=== PATIENT | male | born 1945 | race Caucasian/White ===

== ENCOUNTER → 2017-10-11 | Outpatient (CLI) | payer MEDICARE, BC ==
--- NOTE | 2017-10-11 10:42 | US ---
EXAMINATION TYPE: US abdomen complete DATE OF EXAM: 10/11/2017 COMPARISON: NONE CLINICAL HISTORY: R10.11 RUQ PAIN. RUQ discomfort for 1 year EXAM MEASUREMENTS: Liver Length: 14.5 cm Gallbladder Wall: 0.2 cm CBD: 0.5 cm Spleen: 9.5 cm Right Kidney: 11.1 x 5.0 x 5.0 cm Left Kidney: 11.2 x 5.4 x 4.6 cm Technical limitations due to patient's body habitus and large amount of overlying bowel content Pancreas: Obscured by bowel gas Liver: limited evaluation, appears wnl Gallbladder: no evidence of stones Evidence for sonographic Pierre's sign: no CBD: appears wnl as visualized Spleen: appears wnl Right Kidney: no evidence of hydronephrosis Left Kidney: no evidence of hydronephrosis Upper IVC: appears wnl Abd Aorta: Obscured by overlying bowel gas The liver is homogenous. The intrahepatic portion of the IVC and proximal abdominal aorta are within normal limits. There is no evidence of cholelithiasis. Common bile duct is unremarkable. The visu alized portions of the pancreas are homogenous. The spleen is unremarkable. Kidneys are symmetric a nd free of hydronephrosis. No renal lesions are seen. IMPRESSION: No significant abnormality appreciated.
== END | disposition home or self-care (01) ==
LOC: RADUSWWP 09:24
DX: R10.11 Right upper quadrant pain (principal)
CPT/HCPCS: 76700

== ENCOUNTER → 2017-11-01 | Outpatient (CLI) | payer MEDICARE, BC ==
--- NOTE | 2017-11-01 13:28 | XR ---
EXAMINATION TYPE: XR chest 2V DATE OF EXAM: 11/01/2017 COMPARISON: 04/07/2016 HISTORY: Shortness of breath TECHNIQUE: Frontal and lateral views of the chest are obtained. FINDINGS: Scattered senescent parenchymal changes noted. No evidence for infiltrate. No evidence for atelectasis. Heart size is stable. Mediastinal structures are stable and grossly unremarkable. No evidence for hilar prominence. Degenerative changes dorsal spine. IMPRESSION: 1. No evidence for acute pulmonary disease.
== END | disposition home or self-care (01) ==
LOC: RADXRMAIN 11:45
PROVIDERS: ATTEND Internal Medicine
DX: R07.81 Pleurodynia (principal)
CPT/HCPCS: 71046

== ENCOUNTER 2017-11-06 08:28 | Day surgery (SDC) | payer MEDICARE, BC ==
[2017-11-04 13:01] VITALS: BMI 30.4
--- NOTE | 2017-11-06 07:45 | P.GSHP ---
History of Present Illness H&P Date: 11/06/17 CHIEF COMPLAINT: GERD and colon screen HISTORY OF PRESENT ILLNESS: The patient is a 66-year-old male who presents with gastroesophageal reflux disease and need for colon screen. Upper and lower endoscopy were offered for further evaluation and management. PAST MEDICAL HISTORY: Please see list. PAST SURGICAL HISTORY: Please see list. MEDICATIONS: Please see list. ALLERGIES: Please see list. SOCIAL HISTORY: No illicit drug use FAMILY HISTORY: No reports of Crohn disease or ulcerative colitis. REVIEW OF ORGAN SYSTEMS: CONSTITUTIONAL: No reports of fevers or chills. GI: Denies any blood in stools or constipation. PHYSICAL EXAM: VITAL SIGNS: Stable GENERAL: Well-developed pleasant in no acute distress. HEENT: No scleral icterus. Extraocular movements grossly intact. Moist buccal mucosa. NECK: Supple without lymphadenopathy. CHEST: Unlabored respirations. Equal bilateral excursions. CARDIOVASCULAR: Regular rate and rhythm. Distal 2+ pulses. ABDOMEN: Soft, nondistended. MUSCULOSKELETAL: No clubbing, cyanosis, or edema. ASSESSMENT: 1. Gastroesophageal reflux disease 2. Colon screen. PLAN: 1. Recommend proceeding with an upper and lower endoscopy Past Medical History Past Medical History: Coronary Artery Disease (CAD), GERD/Reflux, Hyperlipidemia , Hypertension, Myocardial Infarction ([place]), Osteoarthritis (OA), Prostate Disorder, Pulmonary Embolus (PE), Supraventricular Tachycardia (SVT) Additional Past Medical History / Comment(s): pulmonary embolism several years ago, PALPITATIONS, enlarged prostate Last Myocardial Infarction Date:: 2013 History of Any Multi-Drug Resistant Organisms: None Reported Past Surgical History: Cardiac Ablation, Heart Catheterization With Stent, Joint Replacement, Orthopedic Surgery, Tonsillectomy Additional Past Surgical History / Comment(s): right hip replaced 2011 Past Anesthesia/Blood Transfusion Reactions: No Reported Reaction Date of Last Stent Placement:: 2013 Smoking Status: Never smoker - Past Family History Mother Additional Family Medical History / Comment(s): brain aneurysm 39 Father Family Medical History: Cancer Additional Family Medical History / Comment(s): esophageal cancer 68 Medications and Allergies Home Medications Medication Instructions Recorded Confirmed Type Carvedilol [Coreg] 6.25 mg PO BID 05/28/14 11/04/17 History Nitroglycerin Sl Tabs [Nitrostat] 0.4 mg SUBLINGUAL Q5M PRN 05/28/14 11/04/17 History traZODone HCL [Desyrel] 100 mg PO HS 05/28/14 11/04/17 History Atorvastatin Calcium [Lipitor] 80 mg PO HS 08/16/15 11/04/17 History Finasteride [Proscar] 5 mg PO DAILY 08/16/15 11/04/17 History Hydrochlorothiazide 50 mg PO DAILY 08/16/15 11/04/17 History Spironolactone [Spironolactone] 25 mg PO DAILY 04/07/16 11/04/17 History Lisinopril [Zestril] 20 mg PO BID 11/04/17 11/04/17 History Loratadine [Claritin] 10 mg PO DAILY 11/04/17 11/04/17 History Rivaroxaban [Xarelto] 20 mg PO DAILY 11/04/17 11/04/17 History Allergies Allergy/AdvReac Type Severity Reaction Status Date / Time codeine Allergy Unknown Verified 11/04/17 12:34 Iodinated Contrast- Oral and Allergy Unknown Verified 11/04/17 12:34 IV Dye [Iodinated Contrast Media - IV Dye]
[~2017-11-06 08:28] MED LIST: LACTATED RINGERS 1,000 ML IV SCH; LIDOCAINE 1% 20 ML VIAL (10MG/ML) FOR IV START INTRADERMA PRN; MIDAZOLAM 2 MG/2 ML VIAL IV PRN
[2017-11-06 10:12] VITALS: TEMP 97.9
[2017-11-06] MEDS ORDERED: PROPOFOL 10 MG/ML 20 ML VIAL IV ONE (10:23)
[2017-11-06] MEDS ORDERED: LIDOCAINE 1% INJ 10MG/ML (20 ML MDV) ONE (10:23)
--- NOTE | 2017-11-06 10:52 | P.PCN ---
Date of Procedure: 11/06/17 Description of Procedure: PREOPERATIVE DIAGNOSIS: Gastroesophageal reflux disease. Epigastric abdominal pain POSTOPERATIVE DIAGNOSIS: Epigastric abdominal pain Gastritis. Duodenitis with duodenal ulcers Gastroesophageal reflux disease. Diaphragmatic hiatal hernia without obstruction. OPERATION: Esophagogastroduodenoscopy with biopsies along antrum. SURGEON: Vandana Denis MD ANESTHESIA: MAC. INDICATIONS: The patient is a 72-year-old male who presents with a history of reflux disease. Benefits and risks of the procedure were described. Informed consent was obtained. DESCRIPTION: The patient was brought into the endoscopy suite and laid in the left lateral decubitus position. An Olympus gastroscope was passed along the posterior oropharynx down to the distal esophagus where the squamocolumnar junction was encountered at 35 cm from the incisors. The stomach was entered and no bile reflux was found. Additional findings are listed below. Biopsies with cold forceps were obtained of the antrum. The first through third portion of the duodenum was examined and unremarkable. Retroflexion of the scope confirmed Hill grade 4 lower esophageal valve. The squamocolumnar junction demostrated early and acute LA grade A erosive esophagitis. The stomach was desufflated. The patient tolerated the procedure well. FINDINGS: Squamocolumnar junction 36 cm from the incisors. Diaphragmatic hiatus at 39 cm. Hiatal hernia 3 cm, sliding type Hill grade 4 lower esophageal valve. LA grade A erosive esophagitis. Duodenitis with duodenal ulcer, superficial without bleeding Gastritis, superficial RECOMMENDATIONS: Start medical therapy. Further recommendations pending results of pathology report. Upper endoscopy as needed. Will benefit from antireflux surgical procedure
--- NOTE | 2017-11-06 10:56 | P.PCN ---
Date of Procedure: 11/06/17 Description of Procedure: PREOPERATIVE DIAGNOSIS: Colonoscopy screening. Personal history of colon polyps. POSTOPERATIVE DIAGNOSIS: Colonoscopy screening. Personal history of colon polyps. Tubular adenomas at sigmoid colon Hyperplastic polyp at cecum OPERATION: Colonoscopy to the ileocecal valve and appendiceal orifice. Colonoscopy with hot snare biopsy Colonoscopy with cold forceps biopsy. SURGEON: Vandana Denis MD. ANESTHESIA: MAC. INDICATIONS: The patient is a 72-year-old female who presents for colonoscopy screening. His last colonoscopy was 8 years ago. Benefits and risks were described and informed consent was obtained. DESCRIPTION OF PROCEDURE: The patient had undergone Gatorade, MiraLAX and Dulcolax prep. He had been brought into the operating room and laid in the left lateral decubitus position. After adequate intravenous sedation, the rectum was examined with 2% lidocaine jelly. External hemorrhoids were encountered. The prostate was smooth and without nodularity. The rectal tone was within normal limits. No lesions were palpated in the rectal vault. An Olympus colonoscope was advanced until the ileocecal valve and appendiceal orifice were clearly viewed. The prep was fair with visualization of the mucosal folds. The scope was removed with visualization of each mucosal fold. No scattered diverticulosis was encountered. Colonic polyps were found and cold forcep biopsy or snare polypectomy. No evidence of focal colitis was found. Retroflexion of the scope demonstrated grade 2 internal hemorrhoids without active bleeding or inflammation. The colon was desufflated. The patient had tolerated the procedure well. Withdrawal time was over 6 minutes. FINDINGS: Internal hemorrhoids, grade 2 External hemorrhoids, grade 2. No arteriovenous malformations. No sigmoid diverticulosis. Removal of 2 polyps: - Snare polypectomy 15 cm from the anal verge, 6 mm tubulovillous adenoma polyp. - Cold forceps biopsy at cecum, 3 mm, hyperplastic No focal colitis. RECOMMENDATIONS: Given severity of tubular adenomas, recommend repeat colonoscopy 3 years, 2020. Plan - Discharge Summary New Discharge Prescriptions: No Action Nitroglycerin Sl Tabs [Nitrostat] 0.4 mg SUBLINGUAL Q5M PRN PRN Reason: Chest Pain Carvedilol [Coreg] 6.25 mg PO BID traZODone HCL [Desyrel] 100 mg PO HS Atorvastatin Calcium [Lipitor] 80 mg PO HS Finasteride [Proscar] 5 mg PO DAILY Hydrochlorothiazide 50 mg PO DAILY Spironolactone [Spironolactone] 25 mg PO DAILY Loratadine [Claritin] 10 mg PO DAILY Rivaroxaban [Xarelto] 20 mg PO DAILY Lisinopril [Zestril] 20 mg PO BID Discharge Medication List Carvedilol [Coreg] 6.25 mg PO BID 05/28/14 [History] Nitroglycerin Sl Tabs [Nitrostat] 0.4 mg SUBLINGUAL Q5M PRN 05/28/14 [History] traZODone HCL [Desyrel] 100 mg PO HS 05/28/14 [History] Atorvastatin Calcium [Lipitor] 80 mg PO HS 08/16/15 [History] Finasteride [Proscar] 5 mg PO DAILY 08/16/15 [History] Hydrochlorothiazide 50 mg PO DAILY 08/16/15 [History] Spironolactone [Spironolactone] 25 mg PO DAILY 04/07/16 [History] Lisinopril [Zestril] 20 mg PO BID 11/04/17 [History] Loratadine [Claritin] 10 mg PO DAILY 11/04/17 [History] Rivaroxaban [Xarelto] 20 mg PO DAILY 11/04/17 [History]
[2017-11-06 11:19] VITALS: PULSE 58
[2017-11-06 11:38] VITALS: BP 120/58; RESP 20
== END 2017-11-06 11:48 | disposition home or self-care (01) ==
LOC: ORWHC2ENDO 08:28
PROVIDERS: ATTEND Surgery Plastic and Reconstructive Surgery
DX: Z12.11 Encounter for screening for malignant neoplasm of colon (principal); D12.7 Benign neoplasm of rectosigmoid junction; D12.0 Benign neoplasm of cecum; K64.4 Residual hemorrhoidal skin tags; K64.1 Second degree hemorrhoids; K29.80 Duodenitis without bleeding; K26.9 Duodenal ulcer, unspecified as acute or chronic, without hemorrhage or perforation; K29.70 Gastritis, unspecified, without bleeding; K44.9 Diaphragmatic hernia without obstruction or gangrene; K21.0 Gastro-esophageal reflux disease with esophagitis; Z86.010 Personal history of colon polyps; I25.10 Atherosclerotic heart disease of native coronary artery without angina pectoris; E78.5 Hyperlipidemia, unspecified; I10 Essential (primary) hypertension; I25.2 Old myocardial infarction; M19.90 Unspecified osteoarthritis, unspecified site; I47.1 Supraventricular tachycardia; N40.0 Benign prostatic hyperplasia without lower urinary tract symptoms; I48.91 Unspecified atrial fibrillation; Z86.711 Personal history of pulmonary embolism; Z95.5 Presence of coronary angioplasty implant and graft; Z96.641 Presence of right artificial hip joint; Z79.01 Long term (current) use of anticoagulants; Z79.899 Other long term (current) drug therapy; Z88.5 Allergy status to narcotic agent; Z91.041 Radiographic dye allergy status
CPT/HCPCS: 88305; 45380; 45385; 43239; J2001; J2704

== ENCOUNTER → 2017-12-23 | Outpatient (CLI) | payer MEDICARE, BC ==
--- NOTE | 2017-12-23 12:25 | US ---
EXAMINATION TYPE: US gallbladder DATE OF EXAM: 12/23/2017 COMPARISON: US CLINICAL HISTORY: K81.9 Cholecystitis. RUQ pain EXAM MEASUREMENTS: Liver Length: 14.9 cm Gallbladder Wall: 0.2 cm CBD: 1.1 cm Right Kidney: 11.9 x 4.6 x 6.1 cm technically difficult exam due to midline bowel gas and and body habitus. Pancreas: not visualized due to midline bowel gas Liver: wnl Gallbladder: No stones seen Evidence for sonographic Pierre's sign: Yes CBD: dilated at 1.1 cm Right Kidney: No hydronephrosis or masses seen IMPRESSION: 1. Common bile duct dilatation at 1.1 cm. Normal less than 0.7 cm.
--- NOTE | 2017-12-23 14:26 | NM ---
EXAMINATION TYPE: NM hepatobiliary w EF DATE OF EXAM: 12/23/2017 COMPARISON: NONE INDICATION: Cholecystitis TECHNIQUE: After the intravenous administration of 5.4 mCi Tc 99m Mebrofenin hepatobiliary scintigrap hy is performed. Images were obtained immediately post injection. FINDINGS: There is prompt uptake and excretion of radiotracer by the liver. Extrahepatic ducts are identified at 12 minutes. The gallbladder is visualized within 12 minutes. Small bowel activity is noted within 48 minutes. At one hour 8 ounces of oral ensure plus is given to mimic CCK and gallbladder ejection fraction is c alculated at 53 %, which is in the normal range. (Normal >35% and <80%.). IMPRESSION: 1. Normal hepatobiliary scan
== END | disposition home or self-care (01) ==
LOC: RADUSMAIN 11:26
PROVIDERS: ATTEND Surgery Plastic and Reconstructive Surgery
DX: Z91.041 Radiographic dye allergy status (principal); Z88.5 Allergy status to narcotic agent; Z88.6 Allergy status to analgesic agent
CPT/HCPCS: 76705; 78226; A9537

== ENCOUNTER → 2018-04-02 | Day surgery (SDC) | payer MEDICARE, BC ==
--- NOTE | 2018-04-01 22:50 | P.GSHP ---
History of Present Illness H&P Date: 04/02/18 CHIEF COMPLAINT: GERD HISTORY OF PRESENT ILLNESS: The patient is a 73-year-old male who presents reports gastroesophageal reflux disease. Upper endoscopy was offered for further evaluation and management. PAST MEDICAL HISTORY: Please see list. PAST SURGICAL HISTORY: Please see list. MEDICATIONS: Please see list. ALLERGIES: Please see list. SOCIAL HISTORY: No illicit drug use FAMILY HISTORY: No reports of Crohn disease or ulcerative colitis. REVIEW OF ORGAN SYSTEMS: CONSTITUTIONAL: No reports of fevers or chills. GI: Denies any blood in stools or constipation. PHYSICAL EXAM: VITAL SIGNS: Stable GENERAL: Well-developed and pleasant in no acute distress. HEENT: No scleral icterus. Extraocular movements grossly intact. Moist buccal mucosa. NECK: Supple without lymphadenopathy. CHEST: Unlabored respirations. Equal bilateral excursions. CARDIOVASCULAR: Regular rate and rhythm. Distal 2+ pulses. ABDOMEN: Soft, nondistended. MUSCULOSKELETAL: No clubbing, cyanosis, or edema. ASSESSMENT: 1. Gastroesophageal reflux disease PLAN: 1. Recommend proceeding with an upper endoscopy Past Medical History Past Medical History: Coronary Artery Disease (CAD), GERD/Reflux, Hyperlipidemia , Hypertension, Myocardial Infarction ([place]), Osteoarthritis (OA), Prostate Disorder, Pulmonary Embolus (PE), Supraventricular Tachycardia (SVT) Additional Past Medical History / Comment(s): CAD, pulmonary embolism, PALPITATIONS, cardiac ablation in 2013 for SVT Last Myocardial Infarction Date:: 2013 History of Any Multi-Drug Resistant Organisms: None Reported Past Surgical History: Heart Catheterization With Stent, Orthopedic Surgery, Tonsillectomy Additional Past Surgical History / Comment(s): right hip replaced 2011 Past Anesthesia/Blood Transfusion Reactions: No Reported Reaction Date of Last Stent Placement:: 2013 Smoking Status: Never smoker - Past Family History Mother Additional Family Medical History / Comment(s): brain aneurysm 39 Father Family Medical History: Cancer Additional Family Medical History / Comment(s): esophageal cancer 68 Medications and Allergies Home Medications Medication Instructions Recorded Confirmed Type Carvedilol [Coreg] 6.25 mg PO BID 05/28/14 11/06/17 History Nitroglycerin Sl Tabs [Nitrostat] 0.4 mg SUBLINGUAL Q5M PRN 05/28/14 11/06/17 History traZODone HCL [Desyrel] 100 mg PO HS 05/28/14 11/06/17 History Atorvastatin Calcium [Lipitor] 80 mg PO HS 08/16/15 11/06/17 History Finasteride [Proscar] 5 mg PO DAILY 08/16/15 11/06/17 History Hydrochlorothiazide 50 mg PO DAILY 08/16/15 11/06/17 History Spironolactone 25 mg PO DAILY 04/07/16 11/06/17 History Lisinopril [Zestril] 20 mg PO BID 11/04/17 11/06/17 History Loratadine [Claritin] 10 mg PO DAILY 11/04/17 11/06/17 History Rivaroxaban [Xarelto] 20 mg PO DAILY 11/04/17 11/06/17 History Omeprazole 40 mg PO DAILY #30 capsule. 11/06/17 Rx Allergies Allergy/AdvReac Type Severity Reaction Status Date / Time codeine Allergy Unknown Verified 11/06/17 09:55 Iodinated Contrast- Oral and Allergy Unknown Verified 11/06/17 09:55 IV Dye [Iodinated Contrast Media - IV Dye]
[~2018-04-02] MED LIST changes: -LACTATED RINGERS 1,000 ML IV SCH; -LIDOCAINE 1% 20 ML VIAL (10MG/ML) FOR IV START INTRADERMA PRN; +LIDOCAINE 1% INJ 10MG/ML (20 ML MDV) ONE; -MIDAZOLAM 2 MG/2 ML VIAL IV PRN; +PROPOFOL 10 MG/ML 20 ML VIAL IV ONE
[2018-04-02 11:12] VITALS: RESP 16; TEMP 97
[2018-04-02] MEDS: LACTATED RINGERS 1,000 ML IV SCH ×2 (11:28→12:32)
--- NOTE | 2018-04-02 12:52 | P.PCN ---
Date of Procedure: 04/02/18 Description of Procedure: PREOPERATIVE DIAGNOSIS: Gastroesophageal reflux disease. Epigastric abdominal pain History of duodenal ulcers History of H. pylori gastritis POSTOPERATIVE DIAGNOSIS: Epigastric abdominal pain Gastritis. Gastroesophageal reflux disease. History of H. pylori gastritis Diaphragmatic hiatal hernia without obstruction. OPERATION: Esophagogastroduodenoscopy with biopsies along antrum. SURGEON: Vandana Denis MD ANESTHESIA: MAC. INDICATIONS: The patient is a 73-year-old male who presents with a history of duodenal ulcers. Benefits and risks of the procedure were described. Informed consent was obtained. DESCRIPTION: The patient was brought into the endoscopy suite and laid in the left lateral decubitus position. An Olympus gastroscope was passed along the posterior oropharynx down to the distal esophagus where the squamocolumnar junction was encountered at 35 cm from the incisors. The stomach was entered and no bile reflux was found. Additional findings are listed below. Biopsies with cold forceps were obtained of the antrum. The first through third portion of the duodenum was examined and unremarkable. Retroflexion of the scope confirmed Hill grade 3 lower esophageal valve. The squamocolumnar junction demostrated LA grade A erosive esophagitis. The stomach was desufflated. The patient tolerated the procedure well. FINDINGS: Squamocolumnar junction 36 cm from the incisors. Diaphragmatic hiatus at 40 cm. Hiatal hernia 4 cm, sliding type Hill grade 4 lower esophageal valve LA grade A erosive esophagitis. Resolved duodenitis and duodenal ulcers Gastritis, superficial RECOMMENDATIONS: Upper endoscopy as needed. Will benefit from antireflux surgical procedure Plan - Discharge Summary New Discharge Prescriptions: No Action Nitroglycerin Sl Tabs [Nitrostat] 0.4 mg SUBLINGUAL Q5M PRN PRN Reason: Chest Pain Carvedilol [Coreg] 6.25 mg PO BID traZODone HCL [Desyrel] 100 mg PO HS Atorvastatin Calcium [Lipitor] 80 mg PO HS Finasteride [Proscar] 5 mg PO DAILY Hydrochlorothiazide 50 mg PO DAILY Spironolactone 25 mg PO DAILY Loratadine [Claritin] 10 mg PO DAILY Rivaroxaban [Xarelto] 20 mg PO DAILY Lisinopril [Zestril] 20 mg PO BID Omeprazole 40 mg PO DAILY #30 capsule.dr Discharge Medication List Carvedilol [Coreg] 6.25 mg PO BID 05/28/14 [History] Nitroglycerin Sl Tabs [Nitrostat] 0.4 mg SUBLINGUAL Q5M PRN 05/28/14 [History] traZODone HCL [Desyrel] 100 mg PO HS 05/28/14 [History] Atorvastatin Calcium [Lipitor] 80 mg PO HS 08/16/15 [History] Finasteride [Proscar] 5 mg PO DAILY 08/16/15 [History] Hydrochlorothiazide 50 mg PO DAILY 08/16/15 [History] Spironolactone 25 mg PO DAILY 04/07/16 [History] Lisinopril [Zestril] 20 mg PO BID 11/04/17 [History] Loratadine [Claritin] 10 mg PO DAILY 11/04/17 [History] Rivaroxaban [Xarelto] 20 mg PO DAILY 11/04/17 [History] Omeprazole 40 mg PO DAILY #30 capsule. 11/06/17 [Rx]
[2018-04-02 13:09] VITALS: BP 130/60; PULSE 55
== END | disposition home or self-care (01) ==
LOC: ORWHC2ENDO 10:37
PROVIDERS: ATTEND Surgery Plastic and Reconstructive Surgery
DX: K29.50 Unspecified chronic gastritis without bleeding (principal); K21.9 Gastro-esophageal reflux disease without esophagitis; K44.9 Diaphragmatic hernia without obstruction or gangrene; K22.10 Ulcer of esophagus without bleeding; Z87.19 Personal history of other diseases of the digestive system; I25.10 Atherosclerotic heart disease of native coronary artery without angina pectoris; I10 Essential (primary) hypertension; E78.5 Hyperlipidemia, unspecified; I25.2 Old myocardial infarction; M19.90 Unspecified osteoarthritis, unspecified site; N42.9 Disorder of prostate, unspecified; Z86.718 Personal history of other venous thrombosis and embolism; Z86.711 Personal history of pulmonary embolism; Z79.01 Long term (current) use of anticoagulants; Z79.899 Other long term (current) drug therapy; Z91.041 Radiographic dye allergy status; Z88.5 Allergy status to narcotic agent; Z86.19 Personal history of other infectious and parasitic diseases
CPT/HCPCS: 88305; 43239; J2001; J2704

== ENCOUNTER 2018-09-12 15:15 | Emergency (ER) | payer MEDICARE, BC ==
[2018-09-12] MEDS ORDERED: SODIUM CHLORIDE 0.9% 1,000 ML IV STA ×2 (15:56)
[2018-09-12] MEDS ORDERED: SODIUM CHLORIDE 0.9% 500 ML 500 ML IV STA (15:56)
[2018-09-12] MEDS ORDERED: MORPHINE SULFATE 4 MG/ML SYRINGE IV STA (15:56)
[2018-09-12] MEDS ORDERED: ONDANSETRON 4 MG/2 ML VIAL IVP STA (15:56)
--- NOTE | 2018-09-12 15:57 | ED ---
Dizziness HPI - General Chief Complaint: Dizziness Stated Complaint: Light headed Time Seen by Provider: 09/12/18 15:56 Source: patient, RN notes reviewed, old records reviewed Mode of arrival: ambulatory Limitations: no limitations - History of Present Illness Initial Comments: This is a 73-year-old male the ER for evaluation patient resents today for eversion of lightheadedness for 3 days. Abdominal pain. But upon further evaluation patient's main complaint is inability to sleep. Patient states he has had difficult isn't quite some time. Lightheadedness also 3 days. Lightheadedness. Pain issues he can't sleep and get any rest. Patient is just asking for something to help him sleep MD Complaint: dizziness -: days(s) Timing: gradual onset, intermittent Description: lightheadedness History of Same: Yes History of Trauma: No Severity: mild Improves With: nothing Worsens With: nothing Associated Symptoms: denies other symptoms - Related Data Home Medications Medication Instructions Recorded Confirmed Nitroglycerin Sl Tabs [Nitrostat] 0.4 mg SUBLINGUAL Q5M PRN 05/28/14 09/12/18 Finasteride [Proscar] 5 mg PO DAILY 08/16/15 09/12/18 Lisinopril [Zestril] 20 mg PO BID 11/04/17 09/12/18 Loratadine [Claritin] 10 mg PO DAILY 11/04/17 09/12/18 Rivaroxaban [Xarelto] 20 mg PO DAILY 11/04/17 09/12/18 Clotrimazole/Betameth Cream 1 applic TOPICAL BID 09/12/18 09/12/18 [Lotrisone] Pantoprazole [Protonix] 40 mg PO DAILY 09/12/18 09/12/18 Prazosin HCl 5 mg PO HS 09/12/18 09/12/18 Pseudoephedrine HCl [Sudafed] 30 mg PO QAM PRN 09/12/18 09/12/18 traZODone HCL 25 mg PO HS 09/12/18 09/12/18 Previous Rx's Medication Instructions Recorded Zolpidem Tartrate [Ambien] 5 mg PO HS #10 tab 09/12/18 Zolpidem Tartrate [Ambien] 5 mg PO HS #30 tab 09/12/18 Allergies Allergy/AdvReac Type Severity Reaction Status Date / Time codeine Allergy Unknown Verified 09/12/18 15:36 Iodinated Contrast- Oral and Allergy Unknown Verified 09/12/18 15:36 IV Dye [Iodinated Contrast Media - IV Dye] Review of Systems ROS Statement: Those systems with pertinent positive or pertinent negative responses have been documented in the HPI. ROS Other: All systems not noted in ROS Statement are negative. Past Medical History Past Medical History: Coronary Artery Disease (CAD), GERD/Reflux, Hyperlipidemia, Hypertension, Myocardial Infarction (ID), Osteoarthritis (OA), Prostate Disorder, Pulmonary Embolus (PE), Supraventricular Tachycardia (SVT) Additional Past Medical History / Comment(s): CAD, pulmonary embolism, PALPITATIONS, cardiac ablation in 2013 for SVT Last Myocardial Infarction Date:: 2013 History of Any Multi-Drug Resistant Organisms: None Reported Past Surgical History: Heart Catheterization With Stent, Orthopedic Surgery, Tonsillectomy Additional Past Surgical History / Comment(s): right hip replaced 2011 Past Anesthesia/Blood Transfusion Reactions: No Reported Reaction Date of Last Stent Placement:: 2013 Past Psychological History: PTSD Smoking Status: Never smoker Past Alcohol Use History: Occasional Past Drug Use History: None Reported - Past Family History Mother Additional Family Medical History / Comment(s): brain aneurysm 39 Father Family Medical History: Cancer Additional Family Medical History / Comment(s): esophageal cancer 67 General Exam Limitations: no limitations General appearance: alert, in no apparent distress Head exam: Present: atraumatic, normocephalic, normal inspection Eye exam: Present: normal appearance, PERRL, EOMI. Absent: scleral icterus, conjunctival injection, periorbital swelling ENT exam: Present: normal exam, mucous membranes moist Neck exam: Present: normal inspection. Absent: tenderness, meningismus, lymphadenopathy Respiratory exam: Present: normal lung sounds bilaterally. Absent: respiratory distress, wheezes, rales, rhonchi, stridor Cardiovascular Exam: Present: regular rate, normal rhythm, normal heart sounds. Absent: systolic murmur, diastolic murmur, rubs, gallop, clicks GI/Abdominal exam: Present: soft, normal bowel sounds. Absent: distended, tenderness, guarding, rebound, rigid Extremities exam: Present: normal inspection, full ROM, normal capillary refill. Absent: tenderness, pedal edema, joint swelling, calf tenderness Back exam: Present: normal inspection Neurological exam: Present: alert, oriented X3, CN II-XII intact Psychiatric exam: Present: normal affect, normal mood Skin exam: Present: warm, dry, intact, normal color. Absent: rash Course Vital Signs 09/12/18 09/12/18 15:20 18:48 Temperature 97.5 F L 98.1 F Pulse Rate 75 88 Respiratory 18 16 Rate Blood Pressure 183/92 136/89 O2 Sat by Pulse 96 96 Oximetry Medical Decision Making - Medical Decision Making 83 male who feels better with IV hydration. Patient given sleeping medication and can be discharged home - Lab Data Result diagrams: 09/12/18 15:55 09/12/18 15:55 Lab Results 09/12/18 09/12/18 09/12/18 Range/Units 15:55 15:55 15:55 WBC 9.2 (3.8-10.6) k/uL RBC 5.22 (4.30-5.90) m/uL Hgb 14.8 (13.0-17.5) gm/dL Hct 46.6 (39.0-53.0) % MCV 89.3 (80.0-100.0) fL MCH 28.3 (25.0-35.0) pg MCHC 31.7 (31.0-37.0) g/dL RDW 13.6 (11.5-15.5) % Plt Count 218 (150-450) k/uL Neutrophils % 77 % Lymphocytes % 12 % Monocytes % 7 % Eosinophils % 2 % Basophils % 1 % Neutrophils # 7.1 (1.3-7.7) k/uL Lymphocytes # 1.1 (1.0-4.8) k/uL Monocytes # 0.7 (0-1.0) k/uL Eosinophils # 0.2 (0-0.7) k/uL Basophils # 0.1 (0-0.2) k/uL PT 13.2 H (9.0-12.0) sec INR 1.3 H (<1.2) APTT 29.5 (22.0-30.0) sec Sodium 137 (137-145) mmol/L Potassium 4.9 (3.5-5.1) mmol/L Chloride 104 (98-107) mmol/L Carbon Dioxide 24 (22-30) mmol/L Anion Gap 9 mmol/L BUN 25 H (9-20) mg/dL Creatinine 1.25 (0.66-1.25) mg/dL Est GFR (CKD-EPI)AfAm 66 (>60 ml/min/1.73 sqM) Est GFR (CKD-EPI)NonAf 57 (>60 ml/min/1.73 sqM) Glucose 98 (74-99) mg/dL Calcium 9.4 (8.4-10.2) mg/dL Phosphorus 3.7 (2.5-4.5) mg/dL Magnesium 1.7 (1.6-2.3) mg/dL Total Bilirubin 0.7 (0.2-1.3) mg/dL AST 32 (17-59) U/L ALT 35 (21-72) U/L Alkaline Phosphatase 78 (38-126) U/L Troponin I (0.000-0.034) ng/mL Total Protein 6.9 (6.3-8.2) g/dL Albumin 4.1 (3.5-5.0) g/dL Lipase 178 (23-300) U/L 09/12/18 Range/Units 15:55 WBC (3.8-10.6) k/uL RBC (4.30-5.90) m/uL Hgb (13.0-17.5) gm/dL Hct (39.0-53.0) % MCV (80.0-100.0) fL MCH (25.0-35.0) pg MCHC (31.0-37.0) g/dL RDW (11.5-15.5) % Plt Count (150-450) k/uL Neutrophils % % Lymphocytes % % Monocytes % % Eosinophils % % Basophils % % Neutrophils # (1.3-7.7) k/uL Lymphocytes # (1.0-4.8) k/uL Monocytes # (0-1.0) k/uL Eosinophils # (0-0.7) k/uL Basophils # (0-0.2) k/uL PT (9.0-12.0) sec INR (<1.2) APTT (22.0-30.0) sec Sodium (137-145) mmol/L Potassium (3.5-5.1) mmol/L Chloride (98-107) mmol/L Carbon Dioxide (22-30) mmol/L Anion Gap mmol/L BUN (9-20) mg/dL Creatinine (0.66-1.25) mg/dL Est GFR (CKD-EPI)AfAm (>60 ml/min/1.73 sqM) Est GFR (CKD-EPI)NonAf (>60 ml/min/1.73 sqM) Glucose (74-99) mg/dL Calcium (8.4-10.2) mg/dL Phosphorus (2.5-4.5) mg/dL Magnesium (1.6-2.3) mg/dL Total Bilirubin (0.2-1.3) mg/dL AST (17-59) U/L ALT (21-72) U/L Alkaline Phosphatase (38-126) U/L Troponin I <0.012 (0.000-0.034) ng/mL Total Protein (6.3-8.2) g/dL Albumin (3.5-5.0) g/dL Lipase (23-300) U/L Disposition Clinical Impression: Insomnia, Dizziness Disposition: HOME SELF-CARE Condition: Good Instructions (If sedation given, give patient instructions): Dizziness (ED), Insomnia (ED) Prescriptions: Zolpidem Tartrate [Ambien] 5 mg PO HS #30 tab Zolpidem Tartrate [Ambien] 5 mg PO HS #10 tab Is patient prescribed a controlled substance at d/c from ED?: Yes When asked, does pt state using other controlled substances?: No If prescribed controlled substance>3 days was MAPS reviewed?: Prescribed <3 Days Referrals: Brandyn Tellez MD [Primary Care Provider] - 1-2 days
[2018-09-12 16:43] LABS: Basophils # (A) 0.1 k/uL (0-0.2); Basophils % (A) 1 %; Eosinophils # (A) 0.2 k/uL (0-0.7); Eosinophils % (A) 2 %; HCT 46.6 % (39.0-53.0); HGB 14.8 gm/dL (13.0-17.5); Lymphocytes # (A) 1.1 k/uL (1.0-4.8); Lymphocytes % (A) 12 %; MCH 28.3 pg (25.0-35.0); MCHC 31.7 g/dL (31.0-37.0); MCV 89.3 fL (80.0-100.0); Mean Platelet Volume 7.5; Monocytes # (A) 0.7 k/uL (0-1.0); Monocytes % (A) 7 %; Neutrophils # (A) 7.1 k/uL (1.3-7.7); Neutrophils % (A) 77 %; Platelet Count 218 k/uL (150-450); RBC 5.22 m/uL (4.30-5.90); RDW 13.6 % (11.5-15.5); WBC 9.2 k/uL (3.8-10.6)
[2018-09-12 16:56] LABS: Albumin 4.1 g/dL (3.5-5.0); Calcium 9.4 mg/dL (8.4-10.2); Magnesium 1.7 mg/dL (1.6-2.3); Phosphorus 3.7 mg/dL (2.5-4.5); Potassium 4.9 mmol/L (3.5-5.1); Total Bilirubin 0.7 mg/dL (0.2-1.3); Total Protein 6.9 g/dL (6.3-8.2)
[2018-09-12 17:04] LABS: INR 1.3 (<1.2); Partial Thromboplastin Time 29.5 sec (22.0-30.0); Prothrombin Time 13.2 sec (9.0-12.0)
[2018-09-12] MEDS ORDERED: ZOLPIDEM 10 MG TAB PO STA (18:17)
[2018-09-12 18:49] VITALS: BP 136/89; PULSE 88; RESP 16; TEMP 98.1
== END 2018-09-12 19:18 | disposition home or self-care (01) ==
LOC: EC 15:15
DX: G47.00 Insomnia, unspecified (principal); R42 Dizziness and giddiness; R10.9 Unspecified abdominal pain; I25.10 Atherosclerotic heart disease of native coronary artery without angina pectoris; K21.9 Gastro-esophageal reflux disease without esophagitis; I10 Essential (primary) hypertension; I25.2 Old myocardial infarction; I47.1 Supraventricular tachycardia; M19.90 Unspecified osteoarthritis, unspecified site; F43.10 Post-traumatic stress disorder, unspecified; N42.9 Disorder of prostate, unspecified; Z86.711 Personal history of pulmonary embolism; Z95.5 Presence of coronary angioplasty implant and graft; Z96.641 Presence of right artificial hip joint; Z79.01 Long term (current) use of anticoagulants; Z79.899 Other long term (current) drug therapy; Z88.5 Allergy status to narcotic agent; Z91.041 Radiographic dye allergy status; Z53.20 Procedure and treatment not carried out because of patient's decision for unspecified reasons
CPT/HCPCS: 36415; 80053; 83690; 83735; 84100; 84484; 85025; 85610; 85730; 99284; 96374; 96361 ×3; J2405

== ENCOUNTER → 2019-01-22 | Outpatient (CLI) | payer MEDICARE, BC ==
--- NOTE | 2019-01-23 07:17 | US ---
EXAMINATION TYPE: US thyroid st tissue head/neck DATE OF EXAM: 01/22/2019 COMPARISON: NONE CLINICAL HISTORY: R13.10 dysphagia, unspecified, E04.9 nontoxic. Dysphagia, No thyroid meds. No prev ious ultrasound. GLAND SIZE: Right Lobe: 4.4 x 1.5 x 2.0 cm Overall Parenchyma: heterogenous Left Lobe: 2.8 x 1.4 x 1.5 cm Overall Parenchyma: heterogeneous Isthmus Thickness: 0.5 cm NODULES RIGHT: # of nodules measured on right: 0 LEFT: # of nodules measured on left: 0 ISTHMUS: # of nodules measured in the isthmus: 0 Bilateral neck scanned, no evidence of lymphadenopathy. Left lobe appears smaller than right lobe. IMPRESSION: Incidentally noted asymmetric size of the thyroid with the right lobe greater than left. Otherwise un remarkable thyroid ultrasound with no discrete nodule.
== END | disposition home or self-care (01) ==
LOC: RADUSWWP 15:47
PROVIDERS: ATTEND Internal Medicine
DX: E07.89 Other specified disorders of thyroid (principal)
CPT/HCPCS: 76536

== ENCOUNTER 2019-03-22 10:40 | Emergency (ER) | payer MEDICARE, BC ==
[2019-03-22 10:56] VITALS: RESP 18
[2019-03-22] MEDS ORDERED: SODIUM CHLORIDE 0.9% 1,000 ML IV STA (11:40)
--- NOTE | 2019-03-22 11:44 | ED ---
Weakness HPI - General Chief complaint: Weakness Stated complaint: Weakness, throat pain Time Seen by Provider: 03/22/19 11:08 Source: patient, RN notes reviewed, old records reviewed Mode of arrival: ambulatory Limitations: no limitations - History of Present Illness Initial comments: This is a 74-year-old male the ER for evaluation. Today patient is stating that he feels weak and is having some sore throat. Sore area and anterior neck area. Patient states all symptoms have been going on for 6 months. Patient denies any change in the symptoms. No recent change in medications. Patient presents today because he just wants to find an answer to why he has not been feeling well. He denies any current headache chest pain or abdominal pain. No shortness of breath. He denies being feverish or sweating. No significant waking or weight loss, no change in appetite. No recent travel history sick contacts and no significant recent hospitalizations MD Complaint: generalized weakness -: month(s) (6) Location: generalized Severity: moderate Severity scale (1-10): 7 Consistency: constant Improves with: none Worsens with: none Context: history of similar Associated Symptoms: denies other symptoms - Related Data Home Medications Medication Instructions Recorded Confirmed Nitroglycerin Sl Tabs [Nitrostat] 0.4 mg SUBLINGUAL Q5M PRN 05/28/14 03/22/19 Finasteride [Proscar] 5 mg PO DAILY 08/16/15 03/22/19 Clotrimazole/Betameth Cream 1 applic TOPICAL BID 09/12/18 03/22/19 [Lotrisone] Pantoprazole [Protonix] 40 mg PO DAILY 09/12/18 03/22/19 Prazosin HCl 5 mg PO HS 09/12/18 03/22/19 traZODone HCL 25 mg PO HS 09/12/18 03/22/19 Atorvastatin [Lipitor] 80 mg PO HS 03/22/19 03/22/19 Fluticasone Nasal [place] [Flonase 2 spr EA NOSTRIL DAILY 03/22/19 03/22/19 Nasal [place]] Lisinopril [Zestril] 10 mg PO DAILY 03/22/19 03/22/19 Rivaroxaban [Xarelto] 20 mg PO DAILY 03/22/19 03/22/19 Previous Rx's Medication Instructions Recorded Zolpidem Tartrate [Ambien] 5 mg PO HS #10 tab 09/12/18 Allergies Allergy/AdvReac Type Severity Reaction Status Date / Time codeine Allergy Unknown Verified 03/22/19 11:47 Iodinated Contrast- Oral and Allergy Unknown Verified 03/22/19 11:47 IV Dye [Iodinated Contrast Media - IV Dye] Review of Systems ROS Statement: Those systems with pertinent positive or pertinent negative responses have been documented in the HPI. ROS Other: All systems not noted in ROS Statement are negative. Past Medical History Past Medical History: Coronary Artery Disease (CAD), GERD/Reflux, Hyperlipidemia, Hypertension, Myocardial Infarction (ID), Osteoarthritis (OA), Prostate Disorder, Pulmonary Embolus (PE), Supraventricular Tachycardia (SVT) Additional Past Medical History / Comment(s): CAD, pulmonary embolism, PALPITATIONS, cardiac ablation in 2013 for SVT Last Myocardial Infarction Date:: 2013 History of Any Multi-Drug Resistant Organisms: None Reported Past Surgical History: Heart Catheterization With Stent, Orthopedic Surgery, Tonsillectomy Additional Past Surgical History / Comment(s): right hip replaced 2011 Past Anesthesia/Blood Transfusion Reactions: No Reported Reaction Date of Last Stent Placement:: 2013 Past Psychological History: PTSD Smoking Status: Never smoker Past Alcohol Use History: Occasional Past Drug Use History: None Reported - Past Family History Mother Additional Family Medical History / Comment(s): brain aneurysm 39 Father Family Medical History: Cancer Additional Family Medical History / Comment(s): esophageal cancer 68 General Exam Limitations: no limitations General appearance: alert, in no apparent distress Head exam: Present: atraumatic, normocephalic, normal inspection Eye exam: Present: normal appearance, PERRL, EOMI. Absent: scleral icterus, conjunctival injection, periorbital swelling ENT exam: Present: normal exam, mucous membranes moist Neck exam: Present: normal inspection. Absent: tenderness, meningismus, lymphadenopathy Respiratory exam: Present: normal lung sounds bilaterally. Absent: respiratory distress, wheezes, rales, rhonchi, stridor Cardiovascular Exam: Present: normal rhythm, tachycardia, normal heart sounds. Absent: systolic murmur, diastolic murmur, rubs, gallop, clicks GI/Abdominal exam: Present: soft, normal bowel sounds. Absent: distended, tenderness, guarding, rebound, rigid Extremities exam: Present: normal inspection, full ROM, normal capillary refill. Absent: tenderness, pedal edema, joint swelling, calf tenderness Back exam: Present: normal inspection Neurological exam: Present: alert, oriented X3, CN II-XII intact Psychiatric exam: Present: normal affect, normal mood Skin exam: Present: warm, dry, intact, normal color. Absent: rash Course Vital Signs 03/22/19 10:55 Temperature 98.0 F Pulse Rate 109 H Respiratory 18 Rate Blood Pressure 112/63 O2 Sat by Pulse 95 Oximetry - Reevaluation(s) Reevaluation #1: 03/22/19 12:10 Medical records reviewed Reevaluation #2: 03/22/19 13:19 Patient's in no acute distress informed of testing, questions are answered. Patient can be discharged to follow-up with primary care EKG Findings - EKG Comments: EKG Findings:: EKG shows sinus rhythm rate 94, AL 2.4, QRS 1:30, QTc 460 Medical Decision Making - Medical Decision Making 84 male the ER for evaluation patient resents today for evaluation weakness nonspecific symptoms and sore throat. X-rays imaging labwork is negative. Patient can be discharged home - Lab Data Result diagrams: 03/22/19 12:20 03/22/19 12:20 Lab Results 03/22/19 03/22/19 03/22/19 Range/Units 12:20 12:20 12:20 WBC 10.4 (3.8-10.6) k/uL RBC 5.21 (4.30-5.90) m/uL Hgb 15.4 (13.0-17.5) gm/dL Hct 45.4 (39.0-53.0) % MCV 87.1 (80.0-100.0) fL MCH 29.5 (25.0-35.0) pg MCHC 33.8 (31.0-37.0) g/dL RDW 13.7 (11.5-15.5) % Plt Count 217 (150-450) k/uL Neutrophils % 78 % Lymphocytes % 10 % Monocytes % 8 % Eosinophils % 2 % Basophils % 2 % Neutrophils # 8.1 H (1.3-7.7) k/uL Lymphocytes # 1.0 (1.0-4.8) k/uL Monocytes # 0.8 (0-1.0) k/uL Eosinophils # 0.2 (0-0.7) k/uL Basophils # 0.2 (0-0.2) k/uL PT (9.0-12.0) sec INR (<1.2) APTT (22.0-30.0) sec Sodium 137 (137-145) mmol/L Potassium 4.5 (3.5-5.1) mmol/L Chloride 101 (98-107) mmol/L Carbon Dioxide 24 (22-30) mmol/L Anion Gap 12 mmol/L BUN 28 H (9-20) mg/dL Creatinine 1.37 H (0.66-1.25) mg/dL Est GFR (CKD-EPI)AfAm 58 (>60 ml/min/1.73 sqM) Est GFR (CKD-EPI)NonAf 50 (>60 ml/min/1.73 sqM) Glucose 107 H (74-99) mg/dL Plasma Lactic Acid Dandre 1.3 (0.7-2.0) mmol/L Calcium 9.7 (8.4-10.2) mg/dL Phosphorus 3.7 (2.5-4.5) mg/dL Magnesium 1.7 (1.6-2.3) mg/dL Total Bilirubin 0.8 (0.2-1.3) mg/dL AST 27 (17-59) U/L ALT 30 (21-72) U/L Alkaline Phosphatase 80 (38-126) U/L Creatine Kinase 59 (55-170) U/L Troponin I (0.000-0.034) ng/mL NT-Pro-B Natriuret Pep pg/mL Total Protein 7.1 (6.3-8.2) g/dL Albumin 4.1 (3.5-5.0) g/dL Urine Color Urine Appearance (Clear) Urine pH (5.0-8.0) Ur Specific [place] (1.001-1.035) Urine Protein (Negative) Urine Glucose (UA) (Negative) Urine Ketones (Negative) Urine Blood (Negative) Urine Nitrite (Negative) Urine Bilirubin (Negative) Urine Urobilinogen (<2.0) mg/dL Ur Leukocyte Esterase (Negative) 03/22/19 03/22/19 03/22/19 Range/Units 12:20 12:20 12:20 WBC (3.8-10.6) k/uL RBC (4.30-5.90) m/uL Hgb (13.0-17.5) gm/dL Hct (39.0-53.0) % MCV (80.0-100.0) fL MCH (25.0-35.0) pg MCHC (31.0-37.0) g/dL RDW (11.5-15.5) % Plt Count (150-450) k/uL Neutrophils % % Lymphocytes % % Monocytes % % Eosinophils % % Basophils % % Neutrophils # (1.3-7.7) k/uL Lymphocytes # (1.0-4.8) k/uL Monocytes # (0-1.0) k/uL Eosinophils # (0-0.7) k/uL Basophils # (0-0.2) k/uL PT 14.2 H (9.0-12.0) sec INR 1.4 H (<1.2) APTT 31.7 H (22.0-30.0) sec Sodium (137-145) mmol/L Potassium (3.5-5.1) mmol/L Chloride (98-107) mmol/L Carbon Dioxide (22-30) mmol/L Anion Gap mmol/L BUN (9-20) mg/dL Creatinine (0.66-1.25) mg/dL Est GFR (CKD-EPI)AfAm (>60 ml/min/1.73 sqM) Est GFR (CKD-EPI)NonAf (>60 ml/min/1.73 sqM) Glucose (74-99) mg/dL Plasma Lactic Acid Dandre (0.7-2.0) mmol/L Calcium (8.4-10.2) mg/dL Phosphorus (2.5-4.5) mg/dL Magnesium (1.6-2.3) mg/dL Total Bilirubin (0.2-1.3) mg/dL AST (17-59) U/L ALT (21-72) U/L Alkaline Phosphatase (38-126) U/L Creatine Kinase (55-170) U/L Troponin I <0.012 (0.000-0.034) ng/mL NT-Pro-B Natriuret Pep 66 pg/mL Total Protein (6.3-8.2) g/dL Albumin (3.5-5.0) g/dL Urine Color Urine Appearance (Clear) Urine pH (5.0-8.0) Ur Specific [place] (1.001-1.035) Urine Protein (Negative) Urine Glucose (UA) (Negative) Urine Ketones (Negative) Urine Blood (Negative) Urine Nitrite (Negative) Urine Bilirubin (Negative) Urine Urobilinogen (<2.0) mg/dL Ur Leukocyte Esterase (Negative) 03/22/19 Range/Units 12:20 WBC (3.8-10.6) k/uL RBC (4.30-5.90) m/uL Hgb (13.0-17.5) gm/dL Hct (39.0-53.0) % MCV (80.0-100.0) fL MCH (25.0-35.0) pg MCHC (31.0-37.0) g/dL RDW (11.5-15.5) % Plt Count (150-450) k/uL Neutrophils % % Lymphocytes % % Monocytes % % Eosinophils % % Basophils % % Neutrophils # (1.3-7.7) k/uL Lymphocytes # (1.0-4.8) k/uL Monocytes # (0-1.0) k/uL Eosinophils # (0-0.7) k/uL Basophils # (0-0.2) k/uL PT (9.0-12.0) sec INR (<1.2) APTT (22.0-30.0) sec Sodium (137-145) mmol/L Potassium (3.5-5.1) mmol/L Chloride (98-107) mmol/L Carbon Dioxide (22-30) mmol/L Anion Gap mmol/L BUN (9-20) mg/dL Creatinine (0.66-1.25) mg/dL Est GFR (CKD-EPI)AfAm (>60 ml/min/1.73 sqM) Est GFR (CKD-EPI)NonAf (>60 ml/min/1.73 sqM) Glucose (74-99) mg/dL Plasma Lactic Acid Dandre (0.7-2.0) mmol/L Calcium (8.4-10.2) mg/dL Phosphorus (2.5-4.5) mg/dL Magnesium (1.6-2.3) mg/dL Total Bilirubin (0.2-1.3) mg/dL AST (17-59) U/L ALT (21-72) U/L Alkaline Phosphatase (38-126) U/L Creatine Kinase (55-170) U/L Troponin I (0.000-0.034) ng/mL NT-Pro-B Natriuret Pep pg/mL Total Protein (6.3-8.2) g/dL Albumin (3.5-5.0) g/dL Urine Color Yellow Urine Appearance Clear (Clear) Urine pH 6.0 (5.0-8.0) Ur Specific [place] 1.021 (1.001-1.035) Urine Protein Negative (Negative) Urine Glucose (UA) Negative (Negative) Urine Ketones Negative (Negative) Urine Blood Negative (Negative) Urine Nitrite Negative (Negative) Urine Bilirubin Negative (Negative) Urine Urobilinogen 3.0 (<2.0) mg/dL Ur Leukocyte Esterase Negative (Negative) - Radiology Data Radiology results: report reviewed (Chest x-ray soft tissueX-ray negative for acute disease), image reviewed Disposition Clinical Impression: Weakness Disposition: HOME SELF-CARE Condition: Good Instructions (If sedation given, give patient instructions): Weakness (ED) Is patient prescribed a controlled substance at d/c from ED?: No Referrals: None,Stated [Primary Care Provider] - 1-2 days
[2019-03-22 12:37] LABS: Basophils # (A) 0.2 k/uL (0-0.2); Basophils % (A) 2 %; Eosinophils # (A) 0.2 k/uL (0-0.7); Eosinophils % (A) 2 %; HCT 45.4 % (39.0-53.0); HGB 15.4 gm/dL (13.0-17.5); Lymphocytes % (A) 10 %; MCH 29.5 pg (25.0-35.0); MCHC 33.8 g/dL (31.0-37.0); MCV 87.1 fL (80.0-100.0); Mean Platelet Volume 6.9; Monocytes # (A) 0.8 k/uL (0-1.0); Monocytes % (A) 8 %; Neutrophils # (A) 8.1 k/uL (1.3-7.7); Neutrophils % (A) 78 %; Platelet Count 217 k/uL (150-450); RBC 5.21 m/uL (4.30-5.90); RDW 13.7 % (11.5-15.5); WBC 10.4 k/uL (3.8-10.6)
[2019-03-22 12:38] LABS: Appearance,Urine Clear (Clear); Bilirubin,Urine Negative (Negative); Blood,Urine Negative (Negative); Color,Urine Yellow; Glucose,Urine (UA) Negative (Negative); Ketones,Urine Negative (Negative); Leukocyte Esterase,Urine Negative (Negative); Nitrite,Urine Negative (Negative); Protein,Urine Negative (Negative); Specific Gravity,Urine 1.021 (1.001-1.035)
[2019-03-22 12:47] LABS: Albumin 4.1 g/dL (3.5-5.0); Calcium 9.7 mg/dL (8.4-10.2); Magnesium 1.7 mg/dL (1.6-2.3); Phosphorus 3.7 mg/dL (2.5-4.5); Potassium 4.5 mmol/L (3.5-5.1); Total Bilirubin 0.8 mg/dL (0.2-1.3); Total Protein 7.1 g/dL (6.3-8.2)
[2019-03-22 12:49] LABS: INR 1.4 (<1.2); Partial Thromboplastin Time 31.7 sec (22.0-30.0); Prothrombin Time 14.2 sec (9.0-12.0)
--- NOTE | 2019-03-22 12:56 | XR ---
EXAMINATION TYPE: XR chest 2V DATE OF EXAM: 03/22/2019 HISTORY: Weakness. REFERENCE: Previous study dated 11/01/2017. FINDINGS: The lungs are clear. Heart size is mildly prominent. Pleural spaces are clear. IMPRESSION: VERY MILD CARDIOMEGALY.
--- NOTE | 2019-03-22 12:57 | XR ---
EXAMINATION TYPE: XR soft tissue neck , 2 VIEWS DATE OF EXAM ORDERED: 03/22/2019 HISTORY: pain. COMPARISON: None. FINDINGS: Soft tissue views of the neck are normal. Prevertebral soft tissues are normal. The epiglo ttis is unremarkable. IMPRESSION: NORMAL SOFT TISSUE VIEWS OF NECK.
[2019-03-22 13:48] VITALS: BP 132/78; PULSE 81; TEMP 97.9
== END 2019-03-22 13:46 | disposition home or self-care (01) ==
LOC: EC 10:40
DX: R53.1 Weakness (principal); R07.0 Pain in throat; I25.10 Atherosclerotic heart disease of native coronary artery without angina pectoris; I10 Essential (primary) hypertension; I25.2 Old myocardial infarction; K21.9 Gastro-esophageal reflux disease without esophagitis; E78.5 Hyperlipidemia, unspecified; Z79.01 Long term (current) use of anticoagulants; Z79.51 Long term (current) use of inhaled steroids; Z79.899 Other long term (current) drug therapy; Z88.5 Allergy status to narcotic agent; Z91.041 Radiographic dye allergy status; Z86.711 Personal history of pulmonary embolism
CPT/HCPCS: 36415; 70360; 71046; 80053; 81003; 82550; 83605; 83735; 83880; 84100; 84443; 84484; 85025; 85610; 85730; 93005; 96360; 99285

== ENCOUNTER → 2019-04-17 | Outpatient (CLI) | payer MEDICARE, BC ==
--- NOTE | 2019-04-17 11:31 | FL ---
EXAMINATION TYPE: FL barium swallow DATE OF EXAM: 04/17/2019 CLINICAL HISTORY: Cough and dysphasia TECHNIQUE: A double contrast esophagram is performed utilizing air and barium. A total of 1 minute 19 seconds of fluoroscopic time was utilized during procedure. 31 fluoroscopic images were saved. 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 There is slight narrowing at the gastroesophageal junction th at persists throughout the majority of the examination and is favored to represent small incomplete s tricture rather than esophageal spasm. No evidence of hiatal hernia. There is moderate intraesophage al reflux and mild gastroesophageal reflux seen on real-time examination. There is mild posterior imp ression on the cervical esophagus by anterior projecting osteophytes within the cervical spine. IMPRESSION: 1. Mild narrowing at the gastroesophageal junction. Represent a mild incomplete stricture rather than esophageal spasm. This results in moderate intraesophageal reflux. 2. Few tertiary contractions intermittently that typically are on the basis of presbyesophagus. 3. Mild gastroesophageal reflux. No hiatal hernia.
[2019-04-17 16:37] LABS: Thyroid Peroxidase Antibodies <28.0 U/mL (0.0-60.0)
== END | disposition home or self-care (01) ==
LOC: RADUSWWP 09:44
PROVIDERS: ATTEND Otolaryngology
DX: K21.9 Gastro-esophageal reflux disease without esophagitis (principal); K22.8 Other specified diseases of esophagus; E04.9 Nontoxic goiter, unspecified
CPT/HCPCS: 74220; 84443; 86376; 86800

== ENCOUNTER 2019-12-22 08:25 | Day surgery (SDC) | payer MEDICARE, BC ==
[2019-12-18 09:03] VITALS: BMI 32.5
[~2019-12-22 08:25] MED LIST changes: +ALPRAZolam 0.25 MG TAB PO PRN; +ALPRAZolam 0.5 MG TAB PO PRN; +ASPIRIN 325 MG TAB PO ONE; +ATORVASTATIN 80 MG TAB PO ONE; -LIDOCAINE 1% INJ 10MG/ML (20 ML MDV) ONE; +NITROGLYCERIN SL TABS 0.4 MG TAB SUBLINGUAL PRN; -PROPOFOL 10 MG/ML 20 ML VIAL IV ONE; +SODIUM CHLORIDE 0.9% 1,000 ML in EMPTY BAG 1 BAG IV ONE
[2019-12-22 09:03] VITALS: TEMP 98.1
[2019-12-22] MEDS ORDERED: fentaNYL (PF) 50 MCG/ML 2 ML AMP ONE (10:55)
[2019-12-22] MEDS: BENZOCAINE SPRAY 1 CAN TOPICAL ONE ×2 (11:08→11:11)
[2019-12-22] MEDS ORDERED: VERAPAMIL 2.5 MG/ML 2 ML AMP ONE (11:18)
[2019-12-22] MEDS ORDERED: HEPARIN SODIUM 1,000 UN/ML (10ML VL) ONE (11:18)
[2019-12-22] MEDS ORDERED: LIDOCAINE 1% INJ 10MG/ML (20 ML MDV) ONE (11:18)
[2019-12-22] MEDS ORDERED: fentaNYL (PF) 50 MCG/ML 2 ML AMP IVP ONE (11:24)
[2019-12-22] MEDS ORDERED: MIDAZOLAM 2 MG/2 ML VIAL IVP ONE (11:24)
[2019-12-22] MEDS: MIDAZOLAM 2 MG/2 ML VIAL IVP ONE ×2 (11:26→11:27)
[2019-12-22 11:48] VITALS: RESP 16
--- NOTE | 2019-12-22 11:58 | P.PCN ---
Date of Procedure: 12/22/19 Operative Findings: TRANSESOPHAGEAL ECHOCARDIOGRAM CONTINUOUS IMPROVEMENT SPECIALIST: JEANMARIE FERRIS MD, RPVI INDICATION: Aortic stenosis SEDATION: Conscious sedation COMPLICATION: None PROCEDURE DESCRIPTION: After obtaining an informed consent, the patient was brought to transesophageal echocardiogram room. Pulse oximetry and heart monitors were attached to the patient. The patient throat was sprayed using lidocaine. The patient was turned into left lateral position. After that a bite guard was placed. After an appropriate conscious sedation was initiated, the transesophageal echocardiogram was advanced through a bite guard into the mid esophagus. A 2-D echocardiogram images, color Doppler images, continuous wave images, pulse-wave images, of various cardiac structure were performed. After that the transesophageal echocardiogram probe was advanced into the stomach and fixed to obtain transgastric view was. The probe was brought into the mid esophagus. I nter-atrial septum was interrogated using 2D images, color Doppler images, without contrast study. After that transesophageal echocardiogram was withdrawn out and upon withdrawing the descending thoracic aorta all the way up to the arch was evaluated. FINDING: The left ventricular dimension and systolic function appeared to be within normal limits. Ejection fraction appeared to be in the range of 55-60%. The right ventricle appeared to be dilated. The right atrium appears to be dilated. Left atrial appendage appeared to be free from any thrombus. The interatrial septum appeared to be intact. The aortic valve appeared to be trileaflet valve and the valve appeared to be thickened and calcified with aortic valve area measured at 1.5 cm. We get a peak gradient of 25 and mean of 15 mmHg across the valve. The mitral valve seems to be also thickened and calcified with evidence of mild mitral regurgitation. There was mild tricuspid regurgitation seen. The aortic root appears to be dilated and measured 4.1 cm. CONCLUSION: 1. Normal left ventricular dimension and systolic function 2. Dilated right ventricle with a normal function 3. Aortic sclerosis with evidence of moderate stenosis only by gradient as well as by area 4. Thickened anterior and posterior mitral leaflets with mild MR 5. Normal tricuspid valve and pulmonic valve 6. Dilated aorta. The aorta was 4.1 cm at the level of sinus of Valsalva
[2019-12-22] MEDS ORDERED: LIDOCAINE 1% INJ 10MG/ML (20 ML MDV) SQ ONE (12:02)
[2019-12-22] MEDS ORDERED: HEPARIN SODIUM 1,000 UN/ML (10ML VL) IV ONE (12:06)
[2019-12-22] MEDS ORDERED: VERAPAMIL SYRINGE (5 MG/10 ML) INTRAARTER ONE ×2 (12:06→12:12)
[2019-12-22] MEDS ORDERED: IOPAMIDOL-370 125ML BTL INJ ONE (12:12)
[2019-12-22] MEDS ORDERED: RX INFO: IV CONTRAST WAS GIVEN 1 EACH MISC MISCELLANE PRN (12:19)
[2019-12-22] MEDS ORDERED: SODIUM CHLORIDE 0.9% 1,000 ML IV SCH (12:30)
[2019-12-22 13:41] VITALS: PULSE 60
--- NOTE | 2019-12-22 16:14 | CC ---
CARDIAC CATHETERIZATION REPORT DATE OF SERVICE: 12/22/2019 PERFORMING PHYSICIAN: Karson Dudley M.D. PROCEDURES PERFORMED: 1. Selective right and left coronary angiogram. 2. Left heart catheterization. INDICATION: This is a very pleasant 74-year-old gentleman with coronary artery disease and prior coronary stenting of the RCA, LCX and LAD as well as aortic stenosis. He was experiencing increasing shortness of breath with exertion. An echocardiogram was performed and revealed evidence of aortic stenosis. He was brought today to undergo a DANNI and heart catheterization. APPROACH: Right radial artery. COMPLICATIONS: None. LEVEL OF SEDATION: Moderate, with sedation length of 14 minutes. PROCEDURE DESCRIPTION: After obtaining informed consent, the patient was brought to the cardiac director of cardiac cath lab. The right radial artery was cannulated using micropuncture technique. The micropuncture wire passed easily. Then I placed a 6-Indonesian sheath. At that point, the patient was given a total of 10,000 units of heparin IV and 2 mg of verapamil IA. Selective right and left coronary angiogram was performed using JR4 and JL3.5 catheters. Left heart catheterization was performed using the JR4 catheter, which crossed the aortic valve. Then I did pullback across the aortic valve. The procedure was completed without any complication. SELECTIVE CORONARY ANGIOGRAM: 1. The right coronary artery is a large-caliber vessel and it is a dominant vessel. The RCA is stented in the mid portion and the stent is patent. 2. The left main is angiographically normal. It bifurcates into LCX and LAD. 3. The LCX is a medium-caliber vessel which seems to be chronically occluded in the mid portion. 4. The LAD. The proximal LAD appeared to have mild disease only. It gives rise to a large diagonal branch which seems to have mild disease only. The mid LAD is stented and the stent is patent. The LAD distally appeared to be normal. 5. HEMODYNAMICS: The LVEDP was 4-6 mmHg with about 15 mm [id number] gradient across the aortic valve. CONCLUSION: 1. Patent stent in the mid right coronary artery. 2. Chronic total occlusion of the left circumflex. 3. Patent stent in the mid LAD. 4. Mild aortic stenosis with only [id number] gradient of 15 mmHg. POST-PROCEDURE MANAGEMENT: 1. Medical treatment. 2. Follow up with the patient. MMODL / IJN: [id number] /
[2019-12-22 16:46] VITALS: BP 92/51
== END 2019-12-22 17:20 | disposition home or self-care (01) ==
LOC: CATHCVL 08:25
PROVIDERS: ATTEND Internal Medicine Interventional Cardiology
DX: I25.10 Atherosclerotic heart disease of native coronary artery without angina pectoris (principal); I08.0 Rheumatic disorders of both mitral and aortic valves; I25.82 Chronic total occlusion of coronary artery; I10 Essential (primary) hypertension; I48.0 Paroxysmal atrial fibrillation; I47.1 Supraventricular tachycardia; I70.0 Atherosclerosis of aorta; E78.00 Pure hypercholesterolemia, unspecified; E78.2 Mixed hyperlipidemia; E66.9 Obesity, unspecified; Z95.5 Presence of coronary angioplasty implant and graft; Z79.02 Long term (current) use of antithrombotics/antiplatelets; Z79.01 Long term (current) use of anticoagulants; Z79.899 Other long term (current) drug therapy; Z88.5 Allergy status to narcotic agent; Z68.33 Body mass index [BMI] 33.0-33.9, adult
CPT/HCPCS: 93312; 93320; 93325; 93458; C1769 ×2; C1894; J2250; J2001; J3010; J1644; Q9967

== ENCOUNTER 2021-02-07 16:19 | Inpatient (IN) | payer OTHER, MEDICARE ==
[2021-02-07] MEDS ORDERED: HYDROmorphone 1 MG/ML 1 ML SYRINGE IVP STA (17:26)
--- NOTE | 2021-02-07 17:46 | XR ---
EXAMINATION TYPE: XR chest 2V DATE OF EXAM: 02/07/2021 COMPARISON: 03/22/2019. HISTORY: Pain. TECHNIQUE: Frontal and lateral views of the chest are obtained. FINDINGS: There is no focal air space opacity, pleural effusion, or pneumothorax seen. The cardiac silhouette size is mildly enlarged. The osseous structures are intact. IMPRESSION: No acute cardiopulmonary process.
[2021-02-07 17:55] LABS: Basophils # (A) 0.1 k/uL (0-0.2); Basophils % (A) 1 %; Eosinophils # (A) 0.2 k/uL (0-0.7); Eosinophils % (A) 2 %; HGB 17.7 gm/dL (13.0-17.5); Lymphocytes # (A) 1.4 k/uL (1.0-4.8); Lymphocytes % (A) 14 %; MCH 30.3 pg (25.0-35.0); MCHC 33.9 g/dL (31.0-37.0); MCV 89.4 fL (80.0-100.0); Mean Platelet Volume 8.1; Monocytes # (A) 0.9 k/uL (0-1.0); Monocytes % (A) 8 %; Neutrophils # (A) 7.7 k/uL (1.3-7.7); Neutrophils % (A) 74 %; Platelet Count 233 k/uL (150-450); RBC 5.82 m/uL (4.30-5.90); RDW 13.1 % (11.5-15.5); WBC 10.4 k/uL (3.8-10.6)
[2021-02-07 18:02] LABS: Albumin 4.5 g/dL (3.5-5.0); Calcium 9.8 mg/dL (8.4-10.2); Potassium 4.5 mmol/L (3.5-5.1); Total Bilirubin 0.7 mg/dL (0.2-1.3); Total Protein 7.4 g/dL (6.3-8.2)
--- NOTE | 2021-02-07 19:52 | CT ---
EXAMINATION TYPE: CT abdomen pelvis wo con DATE OF EXAM: 02/07/2021 COMPARISON: None available. HISTORY: epigastric pain CT DLP: 906.3 mGycm Automated exposure control for dose reduction was used. TECHNIQUE: Helical acquisition of images was performed from the lung bases through the pelvis. FINDINGS: LUNG BASES: No significant abnormality is appreciated. LIVER/GB: No significant abnormality is appreciated. PANCREAS: No significant abnormality is seen. SPLEEN: No significant abnormality is seen. ADRENALS: No significant abnormality is seen. KIDNEYS: No significant abnormality is seen. FREE AIR: No free air is visualized RETROPERITONEAL ADENOPATHY: None visualized REPRODUCTIVE ORGANS: No significant abnormality is seen URINARY BLADDER: No significant abnormality is seen. PELVIC ADENOPATHY: None visualized. OSSEOUS STRUCTURES: No acute abnormality is seen. Right hip arthroplasty. Moderate lumbar spondylosi s. BOWEL: No acute abnormality is seen. Small hiatal hernia. OTHER: Moderate atherosclerotic disease. IMPRESSION: NO ACUTE ABNORMALITY. SMALL HIATAL HERNIA.
--- NOTE | 2021-02-07 20:24 | ED ---
Abdominal Pain HPI - General Chief Complaint: Abdominal Pain Stated Complaint: Indigestion Time Seen by Provider: 02/07/21 17:00 Source: patient, RN notes reviewed Mode of arrival: ambulatory Limitations: no limitations - History of Present Illness Initial Comments: Patient is a 76-year-old male that presents to emergency room complaining of right upper quadrant pain. He does note that he has a history of acid reflux. He notes that he's had evaluation of his gallbladder done in the past with no acute findings. He was mildly tender in right upper quadrant on physical exam. He denied any other issues or complaints at this time. He was a well-appearing 76-year-old male in no apparent distress or pain. He noted that the pain comes and goes. He denied any specific aggravating factors. He notes that time usually less pain go away. He denied any chest pain shortness of breath headache nausea vomiting diarrhea constipation fever fatigue chills. - Related Data Home Medications Medication Instructions Recorded Confirmed Nitroglycerin Sl Tabs [Nitrostat] 0.4 mg SUBLINGUAL Q5M PRN 05/28/14 02/07/21 Finasteride [Proscar] 5 mg PO DIRECTED 08/16/15 02/07/21 Pantoprazole [Protonix] 40 mg PO DAILY 09/12/18 02/07/21 Prazosin HCl 5 mg PO HS 09/12/18 02/07/21 Atorvastatin [Lipitor] 80 mg PO DAILY 03/22/19 02/07/21 Rivaroxaban [Xarelto] 20 mg PO DAILY 03/22/19 02/07/21 lisinopriL [Zestril] 10 mg PO DIRECTED 03/22/19 02/07/21 traZODone HCL 100 mg PO HS 12/18/19 02/07/21 Clotrimazole/Betamethasone Dip 1 applic TOPICAL BID 02/07/21 02/07/21 [Lotrisone Cream] Escitalopram Oxalate [Lexapro] 5 mg PO DAILY 02/07/21 02/07/21 Spironolactone 25 mg PO DAILY 02/07/21 02/07/21 carvediloL [Coreg] 6.25 mg PO BID 02/07/21 02/07/21 hydroCHLOROthiazide 25 mg PO DAILY 02/07/21 02/07/21 Previous Rx's Medication Instructions Recorded Zolpidem Tartrate [Ambien] 5 mg PO HS #10 tab 09/12/18 Allergies Allergy/AdvReac Type Severity Reaction Status Date / Time codeine Allergy Unknown Verified 02/07/21 20:16 Iodinated Contrast Media Allergy Unknown Verified 02/07/21 20:16 [Iodinated Contrast Media - IV Dye] Review of Systems ROS Statement: Those systems with pertinent positive or pertinent negative responses have been documented in the HPI. ROS Other: All systems not noted in ROS Statement are negative. Past Medical History Past Medical History: Atrial Fibrillation, Coronary Artery Disease (CAD), Cancer, GERD/Reflux, Hyperlipidemia, Hypertension, Myocardial Infarction ([place]), Osteoarthritis (OA), Prostate Disorder, Pulmonary Embolus (PE), Sleep Apnea/CPAP/BIPAP, Supraventricular Tachycardia (SVT) Additional Past Medical History / Comment(s): having dizzy spells, pulmonary embolism, PALPITATIONS, cardiac ablation in 2013 for SVT, hx basal cell on back Last Myocardial Infarction Date:: 2013 History of Any Multi-Drug Resistant Organisms: None Reported Past Surgical History: Cardiac Ablation, Heart Catheterization With Stent, Joint Replacement, Tonsillectomy Additional Past Surgical History / Comment(s): right hip replaced 2011 Past Anesthesia/Blood Transfusion Reactions: No Reported Reaction Date of Last Stent Placement:: 2013 Past Psychological History: Anxiety, Depression, PTSD Smoking Status: Never smoker Past Alcohol Use History: Rare Past Drug Use History: None Reported - Past Family History Mother Additional Family Medical History / Comment(s): brain aneurysm 39 Father Family Medical History: Cancer Additional Family Medical History / Comment(s): esophageal cancer 67 General Exam Limitations: no limitations General appearance: alert, in no apparent distress Head exam: Present: atraumatic, normocephalic, normal inspection Eye exam: Present: normal appearance, PERRL, EOMI. Absent: scleral icterus, conjunctival injection, periorbital swelling Neck exam: Present: normal inspection Respiratory exam: Present: normal lung sounds bilaterally. Absent: respiratory distress, wheezes, rales, rhonchi, stridor Cardiovascular Exam: Present: regular rate, normal rhythm, normal heart sounds. Absent: systolic murmur, diastolic murmur, rubs, gallop, clicks GI/Abdominal exam: Present: soft, tenderness (Right Upper quadrant), normal bowel sounds. Absent: distended, guarding, rebound, rigid Extremities exam: Present: normal inspection, full ROM, normal capillary refill. Absent: tenderness, pedal edema, joint swelling, calf tenderness Neurological exam: Present: alert, oriented X3 Psychiatric exam: Present: normal affect, normal mood Skin exam: Present: warm, dry, intact, normal color. Absent: rash Course Vital Signs 02/07/21 02/07/21 16:21 19:05 Temperature 98.8 F Pulse Rate 54 L 78 Respiratory 19 18 Rate Blood Pressure 157/75 118/85 O2 Sat by Pulse 95 97 Oximetry Medical Decision Making - Medical Decision Making 76-year-old male complaining of right upper quadrant pain that comes and goes. Labs, 1 L normal saline, 1 mg of Dilaudid, CT of the abdomen and pelvis ordered. Labs unremarkable from baseline. CT negative for any acute process. Case discussed with Dr. Londono, given patient's complicated medical history with cardiac risk factors patient will be admitted for observation. Tanika Osman from [facility] accepted the admission. - Lab Data Result diagrams: 02/07/21 17:35 02/07/21 17:35 Lab Results 02/07/21 02/07/21 02/07/21 Range/Units 17:35 17:35 17:35 WBC 10.4 (3.8-10.6) k/uL RBC 5.82 (4.30-5.90) m/uL Hgb 17.7 H (13.0-17.5) gm/dL Hct 52.0 (39.0-53.0) % MCV 89.4 (80.0-100.0) fL MCH 30.3 (25.0-35.0) pg MCHC 33.9 (31.0-37.0) g/dL RDW 13.1 (11.5-15.5) % Plt Count 233 (150-450) k/uL MPV 8.1 Neutrophils % 74 % Lymphocytes % 14 % Monocytes % 8 % Eosinophils % 2 % Basophils % 1 % Neutrophils # 7.7 (1.3-7.7) k/uL Lymphocytes # 1.4 (1.0-4.8) k/uL Monocytes # 0.9 (0-1.0) k/uL Eosinophils # 0.2 (0-0.7) k/uL Basophils # 0.1 (0-0.2) k/uL Sodium 136 L (137-145) mmol/L Potassium 4.5 (3.5-5.1) mmol/L Chloride 103 (98-107) mmol/L Carbon Dioxide 22 (22-30) mmol/L Anion Gap 11 mmol/L BUN 28 H (9-20) mg/dL Creatinine 1.44 H (0.66-1.25) mg/dL Est GFR (CKD-EPI)AfAm 54 (>60 ml/min/1.73 sqM) Est GFR (CKD-EPI)NonAf 47 (>60 ml/min/1.73 sqM) Glucose 128 H (74-99) mg/dL Calcium 9.8 (8.4-10.2) mg/dL Total Bilirubin 0.7 (0.2-1.3) mg/dL AST 34 (17-59) U/L ALT 23 (4-49) U/L Alkaline Phosphatase 89 (38-126) U/L Troponin I <0.012 (0.000-0.034) ng/mL Total Protein 7.4 (6.3-8.2) g/dL Albumin 4.5 (3.5-5.0) g/dL Amylase 78 (30-110) U/L Lipase 181 (23-300) U/L - EKG Data -: EKG Interpreted by Wy EKG shows normal: sinus rhythm Rate: normal EKG Comments: Ventricular rate 91 bpm, WV interval 274 ms, QRS duration 126 ms, QTC 484 ms, P RT axes 60/32/57. Sinus rhythm with first-degree AV block with blocked premature atrial complexes, right bundle branch block, abnormal ECG. Disposition Clinical Impression: Chest pain, Right upper quadrant pain Disposition: ADMITTED IP TO THIS HOSP Condition: Stable Is patient prescribed a controlled substance at d/c from ED?: No Referrals: [facility],Clinic [Primary Care Provider] - 1-2 days Time of Disposition: 20:53
[2021-02-07] MEDS ORDERED: NALOXONE 0.4 MG/ML 1 ML VIAL IV PRN (20:53)
[2021-02-07 21:20] LABS: Appearance,Urine Clear (Clear); Bilirubin,Urine Negative (Negative); Blood,Urine Negative (Negative); Color,Urine Yellow; Glucose,Urine (UA) Negative (Negative); Ketones,Urine Negative (Negative); Leukocyte Esterase,Urine Negative (Negative); Nitrite,Urine Negative (Negative); PH, Urine 5.5 (5.0-8.0); Protein,Urine Negative (Negative); Specific Gravity,Urine 1.023 (1.001-1.035); Urobilinogen,Urine <2.0 mg/dL (<2.0)
[2021-02-07] MEDS: SODIUM CHLORIDE 0.9% 1,000 ML IV SCH (22:10)
[2021-02-08] MEDS ORDERED: NITROGLYCERIN SL TABS 0.4 MG TAB SUBLINGUAL PRN (00:52)
[2021-02-08] MEDS: traZODone HCL 50 MG TAB PO SCH ×2 (01:44→20:34)
[2021-02-08] MEDS: ATORVASTATIN 80 MG TAB PO SCH ×2 (01:44→20:34)
[2021-02-08] MEDS: ZOLPIDEM 5 MG TAB PO SCH ×2 (01:44→20:35)
[2021-02-08] MEDS: HYDROmorphone 1 MG/ML 1 ML SYRINGE IVP PRN ×2 (02:21→17:33)
[2021-02-08] MEDS: carvediloL 6.25 MG TAB PO SCH ×2 (02:22→09:39)
[2021-02-08] MEDS: PRAZOSIN 1 MG CAP PO SCH ×2 (02:22→20:35)
[2021-02-08] MEDS: SODIUM CHLORIDE 0.9% 1,000 ML IV SCH ×3 (05:27→20:40)
[2021-02-08 06:05] LABS: HCT 50.5 % (39.0-53.0); HGB 16.6 gm/dL (13.0-17.5); MCH 29.7 pg (25.0-35.0); MCHC 32.8 g/dL (31.0-37.0); MCV 90.4 fL (80.0-100.0); Mean Platelet Volume 8.1; Platelet Count 193 k/uL (150-450); RBC 5.59 m/uL (4.30-5.90); RDW 13.2 % (11.5-15.5); WBC 9.5 k/uL (3.8-10.6)
[2021-02-08 06:22] LABS: African American GFR (CKD) 62 (>60 ml/min/1.73 sqM); Anion Gap 9 mmol/L; Blood Urea Nitrogen 26 mg/dL (9-20); Calcium 9.8 mg/dL (8.4-10.2); Carbon Dioxide 26 mmol/L (22-30); Chloride 101 mmol/L (98-107); Glucose 102 mg/dL (74-99); Non-African American GFR(CKD) 53 (>60 ml/min/1.73 sqM); Potassium 4.2 mmol/L (3.5-5.1); Sodium 136 mmol/L (137-145)
[2021-02-08] MEDS ORDERED: PANTOPRAZOLE 40 MG TABLET PO SCH (07:30)
[2021-02-08] MEDS: ESCITALOPRAM 5 MG TAB PO SCH (09:39)
[2021-02-08] MEDS: CLOTRIMAZOLE/BETAMETH 1-0.05% CREAM 45 GM TUBE TOPICAL SCH ×2 (09:42→20:35)
[2021-02-08] MEDS: RIVAROXABAN 20 MG TAB PO SCH (09:42)
[2021-02-08] MEDS ORDERED: FINASTERIDE 5 MG TAB PO SCH (10:30)
[2021-02-08] MEDS ORDERED: HYDROcodone/APAP 5-325MG 1 EACH TAB PO PRN (10:48)
--- NOTE | 2021-02-08 12:38 | P.HPIM ---
History of Present Illness Patient pleasant 76-year-old male came in with comments of right upper quadrant abdominal pain patient has sensitivity burning sensation and sharp pain nonradiating. Improves after eating. Patient denied any fever chills patient has the symptoms going on for about a month. Patient had a CT of the abdomen which showed high-density without any other significant abnormality. Ordered ultrasound of the gallbladder to rule out cholelithiasis, troponins were done that were negative EKG showed sinus rhythm with first-degree AV block. Patient has a creatinine of 1.44 baseline appears to be 1.2 presently improved to 1. patient is on Aldactone which is being held, hydrochlorothiazide which is being held as well because of acute renal failure. REVIEW OF SYSTEMS: CONSTITUTIONAL: No fever, no malaise, no fatigue. HEENT: No recent visual problems or hearing problems. Denied any sore throat. CARDIOVASCULAR: No chest pain, orthopnea, PND, no palpitations, no syncope. PULMONARY: No shortness of breath, no cough, no hemoptysis. GASTROINTESTINAL: As mentioned in HPI. NEUROLOGICAL: No headaches, no weakness, no numbness. HEMATOLOGICAL: Denies any bleeding or petechiae. GENITOURINARY: Denies any burning micturition, frequency, or urgency. MUSCULOSKELETAL/RHEUMATOLOGICAL: Denies any joint pain, swelling, or any muscle pain. ENDOCRINE: Denies any polyuria or polydipsia. The rest of the 14-point review of systems is negative. PHYSICAL EXAMINATION: GENERAL: The patient is alert and oriented x3, not in any acute distress. Well developed, well nourished. HEENT: Pupils are round and equally reacting to light. EOMI. No scleral icterus. No conjunctival pallor. Normocephalic, atraumatic. No pharyngeal erythema. No thyromegaly. CARDIOVASCULAR: S1 and S2 present. No murmurs, rubs, or gallops. PULMONARY: Chest is clear to auscultation, no wheezing or crackles. ABDOMEN: Soft, nontender, nondistended, normoactive bowel sounds. No palpable organomegaly. MUSCULOSKELETAL: No joint swelling or deformity. EXTREMITIES: No cyanosis, clubbing, or pedal edema. NEUROLOGICAL: Gross neurological examination did not reveal any focal deficits. SKIN: No rashes. Assessment and plan -Possible duodenal ulcer: Patient will be started on Protonix twice a day patient will be started on diet once a ultrasound was done we will rule out cholelithiasis. -Acute renal failure on chronic indices a stage III acute renal failure is probably secondary to diuretic still being held at this time -First-degree AV block with mild sinus bradycardia asymptomatic at this time we'll cut down the dose of the Coreg -Chronic kidney disease is secondary to hypertensive nephrosclerosis -History of atrial fibrillation presently rate controlled continue with anticoagulation -Gastro-esophageal reflux disease -Hyperlipidemia -Hypertension -Benign prostatic hypertrophy -History of pulmonary embolism -Sleep apnea DVT prophylaxis: Patient is on anti-correlation at this time Past Medical History Past Medical History: Atrial Fibrillation, Coronary Artery Disease (CAD), Cancer, GERD/Reflux, Hyperlipidemia, Hypertension, Myocardial Infarction ([place]), Osteoarthritis (OA), Prostate Disorder, Pulmonary Embolus (PE), Sleep Apnea/CPAP/BIPAP, Supraventricular Tachycardia (SVT) Additional Past Medical History / Comment(s): having dizzy spells, pulmonary embolism, PALPITATIONS, cardiac ablation in 2013 for SVT, hx basal cell on back Last Myocardial Infarction Date:: 2013 History of Any Multi-Drug Resistant Organisms: None Reported Past Surgical History: Cardiac Ablation, Heart Catheterization With Stent, Joint Replacement, Tonsillectomy Additional Past Surgical History / Comment(s): right hip replaced 2011 Past Anesthesia/Blood Transfusion Reactions: No Reported Reaction Date of Last Stent Placement:: 2013 Past Psychological History: Anxiety, Depression, PTSD Additional Psychological History / Comment(s): due to [place] Smoking Status: Never smoker Past Alcohol Use History: Rare Past Drug Use History: None Reported - Past Family History Mother Additional Family Medical History / Comment(s): brain aneurysm 39 Father Family Medical History: Cancer Additional Family Medical History / Comment(s): esophageal cancer 67 Medications and Allergies Home Medications Medication Instructions Recorded Confirmed Type Nitroglycerin Sl Tabs [Nitrostat] 0.4 mg SUBLINGUAL Q5M PRN 05/28/14 02/07/21 History Finasteride [Proscar] 5 mg PO DIRECTED 08/16/15 02/07/21 History Pantoprazole [Protonix] 40 mg PO DAILY 09/12/18 02/07/21 History Prazosin HCl 5 mg PO HS 09/12/18 02/07/21 History Zolpidem Tartrate [Ambien] 5 mg PO HS #10 tab 09/12/18 02/07/21 Rx Atorvastatin [Lipitor] 80 mg PO DAILY 03/22/19 02/07/21 History Rivaroxaban [Xarelto] 20 mg PO DAILY 03/22/19 02/07/21 History lisinopriL [Zestril] 10 mg PO DIRECTED 03/22/19 02/07/21 History traZODone HCL 100 mg PO HS 12/18/19 02/07/21 History Clotrimazole/Betamethasone Dip 1 applic TOPICAL BID 02/07/21 02/07/21 History [Lotrisone Cream] Escitalopram Oxalate [Lexapro] 5 mg PO DAILY 02/07/21 02/07/21 History Spironolactone 25 mg PO DAILY 02/07/21 02/07/21 History carvediloL [Coreg] 6.25 mg PO BID 02/07/21 02/07/21 History hydroCHLOROthiazide 25 mg PO DAILY 02/07/21 02/07/21 History Allergies Allergy/AdvReac Type Severity Reaction Status Date / Time codeine Allergy Unknown Verified 02/07/21 20:16 Iodinated Contrast Media Allergy Unknown Verified 02/07/21 20:16 [Iodinated Contrast Media - IV Dye] Physical Exam Vitals: Vital Signs Temp Pulse Pulse Resp BP BP Pulse Ox 02/08/21 08:00 50 L 18 02/08/21 07:00 97.6 F 50 L 18 123/80 95 02/08/21 01:41 97.5 F L 77 18 130/89 98 02/07/21 22:30 97.6 F 82 18 151/88 94 L 02/07/21 22:20 98.0 F 81 18 120/82 96 02/07/21 21:00 79 18 139/90 97 02/07/21 19:05 78 18 118/85 97 02/07/21 16:21 98.8 F 54 L 19 157/75 95 Intake and Output 02/07/21 02/08/21 02/08/21 22:59 06:59 14:59 Output Total 300 Balance -300 Output: Urine 300 Other: Voiding Method Toilet Urinal # Voids 0 Weight 95.254 kg Results CBC & Chem 7: 02/08/21 04:41 02/08/21 04:41 Labs: Abnormal Lab Results - Last 24 Hours (Table) 02/07/21 02/07/21 02/08/21 Range/Units 17:35 17:35 04:41 Hgb 17.7 H (13.0-17.5) gm/dL Sodium 136 L 136 L (137-145) mmol/L BUN 28 H 26 H (9-20) mg/dL Creatinine 1.44 H 1.29 H (0.66-1.25) mg/dL Glucose 128 H 102 H (74-99) mg/dL Thrombosis Risk Factor Assmnt - Choose All That Apply Any of the Below Risk Factors Present?: Yes Each Risk Factor Represents 3 Points: Age 75 years or older, History of DVT/PE Thrombosis Risk Factor Assessment Total Risk Factor Score: 6 Thrombosis Risk Factor Assessment Level: High Risk
--- NOTE | 2021-02-08 13:53 | US ---
EXAMINATION TYPE: US gallbladder DATE OF EXAM: 02/08/2021 COMPARISON: CT 2020 CLINICAL HISTORY: elevated liver enzymes. Exam done portable. EXAM MEASUREMENTS: Liver Length: 14.3 cm Gallbladder Wall: 0.1 cm CBD: 0.4 cm Right Kidney: 11.3 x 5.5 x 4.7 cm Difficult and limited study due to patient body habitus Pancreas: obscured by overlying midline bowel gas Liver: scanned intercostally, visualized portions wnl may be some mild to moderate fatty infiltrati on to the liver. Gallbladder: wnl Evidence for sonographic Pierre's sign: no CBD: visualized portions wnl, limited by overlying bowel gas Right Kidney: wnl IMPRESSION: 1. Mild to moderate fatty infiltration of liver. 2. Limited exam due to body habitus.
[2021-02-08] MEDS: carvediloL 3.125 MG TAB PO SCH (20:34)
[2021-02-08] MEDS: PANTOPRAZOLE 40 MG/10 ML VIAL IVP SCH (20:35)
[2021-02-09] MEDS: SODIUM CHLORIDE 0.9% 1,000 ML IV SCH ×2 (03:45→12:23)
[2021-02-09 08:29] VITALS: RESP 16
[2021-02-09] MEDS: PANTOPRAZOLE 40 MG/10 ML VIAL IVP SCH (08:44)
[2021-02-09] MEDS: RIVAROXABAN 20 MG TAB PO SCH (08:49)
[2021-02-09] MEDS: ESCITALOPRAM 5 MG TAB PO SCH (08:50)
[2021-02-09] MEDS: carvediloL 3.125 MG TAB PO SCH (08:50)
[2021-02-09 10:13] LABS: African American GFR (CKD) 75 (>60 ml/min/1.73 sqM); Anion Gap 9 mmol/L; Blood Urea Nitrogen 24 mg/dL (9-20); Carbon Dioxide 22 mmol/L (22-30); Chloride 105 mmol/L (98-107); Glucose 129 mg/dL (74-99); Non-African American GFR(CKD) 65 (>60 ml/min/1.73 sqM); Potassium 4.3 mmol/L (3.5-5.1); Sodium 136 mmol/L (137-145)
[2021-02-09] MEDS: SIMETHICONE 80 MG CHEWABLE PO SCH ×3 (12:21→15:59)
[2021-02-09] MEDS: CLOTRIMAZOLE/BETAMETH 1-0.05% CREAM 45 GM TUBE TOPICAL SCH (12:23)
--- NOTE | 2021-02-09 14:50 | P.PN ---
Subjective Progress Note Date: 02/09/21 Patient pleasant 76-year-old male came in with comments of right upper quadrant abdominal pain patient has sensitivity burning sensation and sharp pain nonradiating. Improves after eating. Patient denied any fever chills patient has the symptoms going on for about a month. Patient had a CT of the abdomen which showed high-density without any other significant abnormality. Ordered ultrasound of the gallbladder to rule out cholelithiasis, troponins were done that were negative EKG showed sinus rhythm with first-degree AV block. Patient has a creatinine of 1.44 baseline appears to be 1.2 presently improved to 1. patient is on Aldactone which is being held, hydrochlorothiazide which is being held as well because of acute renal failure. 02/09/2021 Patient is evaluated sitting the chair. Patient reports sharp right upper quadrant/epigastric pain. He reports heartburn this morning. Patient received a dose of IV Protonix, and stated helped very minimally. Patient does have a history of H. pylori, antrum ulcer, reflux disease. He last scope appears to be done in 2018, there was a recommendation at that time for antireflux surgery. Gallbladder ultrasound showed a mild to moderate fatty infiltration of liver. With limited exam due to body habitus. Patient denies any chest pain, cough, shortness of breath. Patient denies any swelling in his legs. Patient reports chronic constipation, states his last bowel movement was on 810. Patient is passing gas. Vital signs are stable today temp 97.7, heart rate 67, blood pressure 154/89, patient is 97% on room air. Blood count within normal limits, patient was mildly dehydrated creatinine was 1.29 yesterday, pending for today. Patient continues on IV fluids. Troponins are negative 3. Patient is felt Dr. Dudley in the office. He states that he is due for a follow-up and repeat echo at this time. Simethicone has been added in addition to IV Zofran, pending GI evaluation. ROS: Constitutional: Denied any fatigue denied any fever. Cardio vascular: denied any chest pain, palpitations Gastrointestinal: denied any nausea vomiting, denies abdominal pain, cramping. Reports constipation, denies diarrhea. Reports mild to moderate right upper quadrant, epigastric pain. Initially improves with eating however then feels worse. Pulmonary: Denied any shortness of breath cough Neurologic denied any new focal deficits All inpatient medications were reviewed and appropriate changes in these medications as dictated in the interval history and assessment and plan. PHYSICAL EXAMINATION: GENERAL: The patient is alert and oriented x3, not in any acute distress. Well developed, well nourished. HEENT: Pupils are round and equally reacting to light. EOMI. No scleral icterus. No conjunctival pallor. Normocephalic, atraumatic. No pharyngeal erythema. No thyromegaly. CARDIOVASCULAR: S1 and S2 present. No murmurs, rubs, or gallops. PULMONARY: Chest is clear to auscultation, no wheezing or crackles. ABDOMEN: Soft, nontender, nondistended, normoactive bowel sounds. No palpable organomegaly. MUSCULOSKELETAL: No joint swelling or deformity. EXTREMITIES: No cyanosis, clubbing, or pedal edema. NEUROLOGICAL: Gross neurological examination did not reveal any focal deficits. SKIN: No rashes. Assessment and plan -Possible duodenal ulcer: Patient will be started on Protonix twice a day, added simethicone. Patient is nothing by mouth for a GI evaluation. Patient still has right upper quadrant pain, epigastric pain antagonized by food. Hx of H. pylori, ulcers. -Acute renal failure on chronic indices a stage III acute renal failure is probably secondary to diuretic still being held at this time, creatinine improved to 1.09 -First-degree AV block with mild sinus bradycardia asymptomatic at this time we'll cut down the dose of the Coreg -Chronic kidney disease is secondary to hypertensive nephrosclerosis -History of atrial fibrillation presently rate controlled continue with antic oagulation -Gastro-esophageal reflux disease continue on a proton -Hyperlipidemia -Hypertension -Benign prostatic hypertrophy -History of pulmonary embolism -Sleep apnea DVT prophylaxis: Patient is on xarelto at this time Patient is pending a GI evaluation for right upper quadrant, epigastric pain. Patient states that this is antagonized by food. He does have a long-standing history of ulcers, H. pylori has been evaluated by surgical services in the past. His most recent scope was in 2018. Patient states that he is due for a follow up with his analytical technician as well, he can do this as an outpatient. Objective - Vital Signs Vital signs: Vital Signs Temp 97.7 F 02/09/21 08:00 Pulse 67 02/09/21 08:00 Resp 16 02/09/21 08:00 BP 154/89 02/09/21 08:00 Pulse Ox 97 02/09/21 08:00 Intake & Output 02/08/21 02/09/21 02/09/21 18:59 06:59 18:59 Intake Total 1040 Output Total 200 Balance -200 1040 Intake: Intake, IV Titration 1040 Amount Sodium Chloride 0.9% 1, 1040 000 ml @ 130 mls/hr IV . Q7H42M [facility] Rx#:[id number] Output: Urine 200 Other: Voiding Method Toilet Toilet Urinal Urinal # Voids 2 - Labs CBC & Chem 7: 02/08/21 04:41 02/09/21 09:15 Assessment and Plan Time with Patient: Greater than 30
[2021-02-09 15:06] VITALS: BP 145/88; PULSE 65; TEMP 98.4
--- NOTE | 2021-02-09 15:23 | P.CONS ---
History of Present Illness - Reason for Consult Consult date: 02/09/21 RUQ pain, epigastric pain Requesting physician: Ha Robertson - Chief Complaint RUQ pain - History of Present Illness 76-year-old male patient who presented to the emergency department with complaints of right upper quadrant pain which he describes as dull and has had for the last 8 months duration. The past medical history of atrial fibrillation, coronary artery disease GERD, hyperlipidemia, hypertension, AR, pulmonary embolism obstructive sleep apnea and SVT. He states he has a history of acid reflux however is not on any current reflux medications. He denies any nausea or vomiting. States his bowel movements are normal. No history of hematemesis or coffee-ground emesis. He did previously see Dr. Roland for similar complaints and underwent an EGD in March 2018 that showed a hiatal hernia, esophagitis, gastritis with a recommendation that he would be a surgical candidate for surgery. Initial labs in the emergency department showed WBC 10, hemoglobin 17, hematocrit 52, platelet count 235,000, total bilirubin 0.7, alkaline phosphatase 89, AST 34, ALT 23, amylase 78, lipase 181. He underwent a CT of the abdomen and pelvis that showed no acute abnormality, small hiatal hernia. He also underwent an ultrasound of the gallbladder that showed mild to moderate fatty infiltration of the liver. He currently states the pain is dull, achy, continues to have no nausea, vomiting, fevers, and is tolerating regular diet. Review of Systems REVIEW OF SYSTEMS: CARDIOPULMONARY: No chest pain or shortness of breath. Gastrointestinal: Dull achy right upper quadrant discomfort. No nausea or vomiting. No hematemesis, coffee-ground emesis. No rectal bleeding, or melena. GENITOURINARY: No dysuria or hematuria. MUSCULOSKELETAL: Reports normal range of motion., Joint pain. SKIN: No rashes. No jaundice. ENDOCRINE: No chills, fevers. No excessive weight gain or loss. No polydipsia or polyuria. PSYCHIATRIC: Unremarkable. NEUROLOGY: No change in mental status. Denies dizziness, headache. ENT: Vision unremarkable. CONSTITUTIONAL: No recent weight loss. No fever, chills, night sweats. Past Medical History Past Medical History: Atrial Fibrillation, Coronary Artery Disease (CAD), Cancer, GERD/Reflux, Hyperlipidemia, Hypertension, Myocardial Infarction (AR), Osteoarthritis (OA), Prostate Disorder, Pulmonary Embolus (PE), Sleep Apnea/CP AP/BIPAP, Supraventricular Tachycardia (SVT) Additional Past Medical History / Comment(s): having dizzy spells, pulmonary embolism, PALPITATIONS, cardiac ablation in 2013 for SVT, hx basal cell on back Last Myocardial Infarction Date:: 2013 History of Any Multi-Drug Resistant Organisms: None Reported Past Surgical History: Cardiac Ablation, Heart Catheterization With Stent, Joint Replacement, Tonsillectomy Additional Past Surgical History / Comment(s): right hip replaced 2011 Past Anesthesia/Blood Transfusion Reactions: No Reported Reaction Date of Last Stent Placement:: 2013 Past Psychological History: Anxiety, Depression, PTSD Additional Psychological History / Comment(s): due to [place] Smoking Status: Never smoker Past Alcohol Use History: Rare Past Drug Use History: None Reported - Past Family History Mother Additional Family Medical History / Comment(s): brain aneurysm 39 Father Family Medical History: Cancer Additional Family Medical History / Comment(s): esophageal cancer 68 Medications and Allergies Home Medications Medication Instructions Recorded Confirmed Type Nitroglycerin Sl Tabs [Nitrostat] 0.4 mg SUBLINGUAL Q5M PRN 05/28/14 02/07/21 History Finasteride [Proscar] 5 mg PO DIRECTED 08/16/15 02/07/21 History Pantoprazole [Protonix] 40 mg PO DAILY 09/12/18 02/07/21 History Prazosin HCl 5 mg PO HS 09/12/18 02/07/21 History Zolpidem Tartrate [Ambien] 5 mg PO HS #10 tab 09/12/18 02/07/21 Rx Atorvastatin [Lipitor] 80 mg PO DAILY 03/22/19 02/07/21 History Rivaroxaban [Xarelto] 20 mg PO DAILY 03/22/19 02/07/21 History lisinopriL [Zestril] 10 mg PO DIRECTED 03/22/19 02/07/21 History traZODone HCL 100 mg PO HS 12/18/19 02/07/21 History Clotrimazole/Betamethasone Dip 1 applic TOPICAL BID 02/07/21 02/07/21 History [Lotrisone Cream] Escitalopram Oxalate [Lexapro] 5 mg PO DAILY 02/07/21 02/07/21 History Spironolactone 25 mg PO DAILY 02/07/21 02/07/21 History carvediloL [Coreg] 6.25 mg PO BID 02/07/21 02/07/21 History hydroCHLOROthiazide 25 mg PO DAILY 02/07/21 02/07/21 History Allergies Allergy/AdvReac Type Severity Reaction Status Date / Time codeine Allergy Unknown Verified 02/07/21 20:16 Iodinated Contrast Media Allergy Unknown Verified 02/07/21 20:16 [Iodinated Contrast Media - IV Dye] Physical Exam Vitals: Vital Signs Temp Pulse Resp BP BP Pulse Ox 02/09/21 08:00 97.7 F 67 16 154/89 97 02/09/21 02:00 97.4 F L 71 18 144/89 96 02/08/21 19:16 97.8 F 87 18 133/76 94 L 02/08/21 14:16 97.9 F 60 16 154/82 95 Intake and Output 02/08/21 02/09/21 02/09/21 22:59 06:59 14:59 Intake Total 1040 Balance 1040 Intake: Intake, IV Titration 1040 Amount Sodium Chloride 0.9% 1, 1040 000 ml @ 130 mls/hr IV . [id number] [facility] Rx#:[id number] Other: Voiding Method Toilet Urinal # Voids 1 2 General appearance: The patient is alert, oriented, appears in no acute distress. HET: Head is normocephalic and atraumatic. Conjunctiva pink. Sclera anicteric. Neck: Supple without lymphadenopathy. Trachea midline. Heart: S1 S2. Regular rate and rhythm. Lungs: Clear to auscultation. Abdomen: Soft, right upper quadrant tenderness to palpation, nondistended with bowel sounds. No guarding or rigidity. Skin: No rashes. No jaundice. Extremities: Normal skin color and turgor. No pedal edema. Neurological: No focal deficits. Alert and oriented 3.. Results CBC & Chem 7: 02/08/21 04:41 02/09/21 09:15 Comments: CT of the abdomen and pelvis show no acute abnormality, small hiatal hernia. Gallbladder ultrasound shows mild to moderate fatty infiltration of liver Assessment and Plan (1) Right upper quadrant pain Narrative/Plan: 76-year-old male with complaints of right upper quadrant pain which he describes as dull/achy and feeling full for the past 8 months descended to the emergency department 2 days ago. He has multiple comorbidities including atrial fibrillation on Xarelto. He has a history of heartburn/gastroesophageal reflux disease however currently has not been taking any medications for it. States previous symptoms in the past and underwent an EGD in March [address] Denis with findings of esophagitis, gastritis, hiatal hernia with notes in her report stating he is a candidate for hiatal hernia surgery. Patient has had no follow-up. Patient has been started on Protonix 40 mg twice a day. No plans for endoscopic evaluation by gastroenterology. Discussed with patient recommend outpatient follow-up with surgery for further discussion of surgical intervention. Current Visit: Yes Status: Acute Code(s): R10.11 - RIGHT UPPER QUADRANT PAIN SNOMED Code(s): 398954121 (2) GERD (gastroesophageal reflux disease) Current Visit: Yes Status: Acute Code(s): K21.9 - GASTRO-ESOPHAGEAL REFLUX DISEASE WITHOUT ESOPHAGITIS SNOMED Code(s): 598894957 Plan: 1. Continue symptomatic and supportive care 2. Continue Protonix 40 mg twice a day 3. No plans on endoscopic evaluation by gastroenterology 4. Patient may have regular diet 5. Discuss with patient recommend outpatient follow-up with general surgery for further evaluation of symptoms and hiatal hernia Thank you for this consultation, we will sign off at this time. Dr. Acuna I agree with the dictator's note, documented as a scribe by Jenny Lynn.
--- NOTE | 2021-02-09 15:33 | P.DS ---
Providers Date of admission: 02/07/21 21:03 Attending physician: Gaby Pineda Consults: 02/09/21 09:48 Consult Physician Routine Consulting Provider: Pavel Acuna Consult Reason/Comments: RUQ/epigastric pain Do you want consulting provider notified?: Yes Primary care physician: [facility] Hospital Course: Final diagnoses -Possible duodenal ulcer: Patient will be started on Protonix twice a day. -Acute renal failure on chronic indices a stage III acute renal failure is probably secondary to diuretic, creatinine improved to 1.09 -First-degree AV block with mild sinus bradycardia asymptomatic at this time we'll cut down the dose of the Coreg, cardiology follow-up -Chronic kidney disease is secondary to hypertensive nephrosclerosis -History of atrial fibrillation presently rate controlled continue with anticoagulation -Gastro-esophageal reflux disease continue on a protonix -Hyperlipidemia -Hypertension -Benign prostatic hypertrophy -History of pulmonary embolism -Sleep apnea Discharge disposition Patient is discharged home in a stable condition, patient needs education regarding appropriate diet for gastritis, peptic ulcer disease. Patient will maintain on Protonix 40 mg twice a day. Patient needs to be evaluated by general surgery. Patient will also follow-up with his PCP. Patient needs a follow up with Dr. Dudley as well, he is due for an echocardiogram evaluation. Patient's vital signs are stable at the time of discharge. No signs of current bleeding. Hospital course Patient pleasant 76-year-old male came in with comments of right upper quadrant abdominal pain patient has sensitivity burning sensation and sharp pain nonradiating. Improves after eating. Patient denied any fever chills patient has the symptoms going on for about a month. Patient had a CT of the abdomen which showed high-density without any other significant abnormality. Ordered ultrasound of the gallbladder to rule out cholelithiasis, troponins were done that were negative EKG showed sinus rhythm with first-degree AV block. Patient has a creatinine of 1.44 baseline appears to be 1.2 presently improved to 1. patient is on Aldactone which is being held, hydrochlorothiazide which is being held as well because of acute renal failure. He reports heartburn this morning. Patient received a dose of IV Protonix, and stated helped very minimally. Patient does have a history of H. pylori, antrum ulcer, reflux disease. He last scope appears to be done in 2018, there was a recommendation at that time for antireflux surgery. Gallbladder ultrasound showed a mild to moderate fatty infi ltration of liver. With limited exam due to body habitus. Patient denies any chest pain, cough, shortness of breath. Patient denies any swelling in his legs. Patient reports chronic constipation, states his last bowel movement was on 02/07. Patient is passing gas. Vital signs are stable today temp 97.7, heart rate 67, blood pressure 154/89, patient is 97% on room air. Blood count within normal limits, patient was mildly dehydrated creatinine was 1.29 yesterday, pending for today. Patient continues on IV fluids. Troponins are negative 3. Patient is felt Dr. Dudley in the office. He states that he is due for a follow- up and repeat echo at this time. Simethicone has been added in addition to IV Zofran. Patient was evaluated by GI services who is recommending a follow-up with surgical services for a workup for antireflux surgery. Patient has a long- standing history and will be discharged home on Protonix 40 mg by mouth twice a day. Please see progress note for today's assessment. See medication reconciliation for list of current medications. Patient Condition at Discharge: Stable Plan - Discharge Summary Discharge Rx Participant: No New Discharge Prescriptions: New carvediloL [Coreg] 3.125 mg PO BID #60 tab Pantoprazole [Protonix] 40 mg PO BID #60 tablet. Continue Nitroglycerin Sl Tabs [Nitrostat] 0.4 mg SUBLINGUAL Q5M PRN PRN Reason: Chest Pain Finasteride [Proscar] 5 mg PO DIRECTED Prazosin HCl 5 mg PO HS Zolpidem Tartrate [Ambien] 5 mg PO HS #10 tab lisinopriL [Zestril] 10 mg PO DIRECTED Atorvastatin [Lipitor] 80 mg PO DAILY Rivaroxaban [Xarelto] 20 mg PO DAILY traZODone HCL 100 mg PO HS hydroCHLOROthiazide 25 mg PO DAILY Escitalopram Oxalate [Lexapro] 5 mg PO DAILY Clotrimazole/Betamethasone Dip [Lotrisone Cream] 1 applic TOPICAL BID Spironolactone 25 mg PO DAILY Discontinued Pantoprazole [Protonix] 40 mg PO DAILY carvediloL [Coreg] 6.25 mg PO BID Discharge Medication List Nitroglycerin Sl Tabs [Nitrostat] 0.4 mg SUBLINGUAL Q5M PRN 05/28/14 [History] Finasteride [Proscar] 5 mg PO DIRECTED 08/16/15 [History] Prazosin HCl 5 mg PO HS 09/12/18 [History] Zolpidem Tartrate [Ambien] 5 mg PO HS #10 tab 09/12/18 [Rx] Atorvastatin [Lipitor] 80 mg PO DAILY 03/22/19 [History] Rivaroxaban [Xarelto] 20 mg PO DAILY 03/22/19 [History] lisinopriL [Zestril] 10 mg PO DIRECTED 03/22/19 [History] traZODone HCL 100 mg PO HS 12/18/19 [History] Clotrimazole/Betamethasone Dip [Lotrisone Cream] 1 applic TOPICAL BID 02/07/21 [History] Escitalopram Oxalate [Lexapro] 5 mg PO DAILY 02/07/21 [History] Spironolactone 25 mg PO DAILY 02/07/21 [History] hydroCHLOROthiazide 25 mg PO DAILY 02/07/21 [History] Pantoprazole [Protonix] 40 mg PO BID #60 tablet. 02/09/21 [Rx] carvediloL [Coreg] 3.125 mg PO BID #60 tab 02/09/21 [Rx] Follow up Appointment(s)/Referral(s): Karson Dudley MD [STAFF PHYSICIAN] - 2 Weeks (Needs echocardiogram) Vandana Denis MD [STAFF PHYSICIAN] - 2 Weeks (Antireflux Surgical evalu ation) [facility] [Primary Care Provider] - 1-2 days Patient Instructions/Handouts: Gastroesophageal Reflux Disease in Children (DC), Diet for Stomach Ulcers and Gastritis (GEN) Activity/Diet/Wound Care/Special Instructions: Patient is cleared from GI services Patient will need to follow-up with Gen. surgical Discharge Disposition: HOME SELF-CARE
== END 2021-02-09 17:37 | disposition home or self-care (01) | DRG 384 ==
LOC: EC 16:19 → 6NMEDSUR 21:03 → OBSVTOIN 21:03 → 6NMEDSUR 02-08 20:25
PROVIDERS: ADMIT Hospitalist; ATTEND Hospitalist
DX: K26.3 Acute duodenal ulcer without hemorrhage or perforation (principal); I47.1 Supraventricular tachycardia; N17.9 Acute kidney failure, unspecified; E78.5 Hyperlipidemia, unspecified; F32.9 Major depressive disorder, single episode, unspecified; F43.10 Post-traumatic stress disorder, unspecified; I12.9 Hypertensive chronic kidney disease with stage 1 through stage 4 chronic kidney disease, or unspecified chronic kidney disease; I25.10 Atherosclerotic heart disease of native coronary artery without angina pectoris; I25.2 Old myocardial infarction; K21.9 Gastro-esophageal reflux disease without esophagitis; K59.09 Other constipation; G47.33 Obstructive sleep apnea (adult) (pediatric); K44.9 Diaphragmatic hernia without obstruction or gangrene; M19.90 Unspecified osteoarthritis, unspecified site; I44.0 Atrioventricular block, first degree; K76.0 Fatty (change of) liver, not elsewhere classified; N18.9 Chronic kidney disease, unspecified; N40.0 Benign prostatic hyperplasia without lower urinary tract symptoms; Z79.01 Long term (current) use of anticoagulants; Z79.899 Other long term (current) drug therapy; Z80.0 Family history of malignant neoplasm of digestive organs; Z86.19 Personal history of other infectious and parasitic diseases; Z86.711 Personal history of pulmonary embolism; Z87.11 Personal history of peptic ulcer disease; Z96.641 Presence of right artificial hip joint; I48.91 Unspecified atrial fibrillation
CPT/HCPCS: 36415; 71046; 74176; 76705; 80048; 80053; 81003; 82150; 83690; 84484; 85025; 85027; 93005; 96374; 99285